=== PATIENT | male | born 1970 | race Caucasian/White ===

== ENCOUNTER 2016-09-03 11:14 | Inpatient (IN) | payer OTHER ==
[2016-09-02 20:00] VITALS: PULSE 114
[2016-09-03] VITALS (8 sets, daily range): BP systolic 111–133; BP diastolic 65–83; PULSE 102–135; RESP 14–22; TEMP 98–98.6; O2SAT 98–100
[~2016-09-03] VITALS: Ht 180.3 cm; Wt 71.4 kg
[2016-09-03] MEDS ORDERED: SODIUM CHLOR 0.9% 1000 ML INJ 1,000 ML IV SCH (12:17)
--- NOTE | 2016-09-03 12:22 | PD ---
HPI Chief Complaint: Abdominal Pain Time Seen by Provider: 12:19 Travel History International Travel<30 days: No Contact w/Intl Traveler<30days: No Traveled to known affect area: No History of Present Illness HPI 46-year-old male presents to the emergency department for evaluation of abdominal pain, vomiting that started approximate 5 days ago. Patient states that he drinks half a bottle of vodka or more daily for many years. The patient denies any fevers. He states that he has vomited twice today. He was shaking alcohol early this morning, but has not been able to keep anything down since. Patient denies any chest pain or shortness of breath. He states the pain is epigastric in nature. Patient denies any hematemesis or blood in his stool. Patient denies taking any prescribed medications. He does report 1 alcohol withdrawal seizure in the past. is concerned because he has been very weak recently. PFSH Past Medical History High Cholesterol: Yes GERD: Yes Social History Alcohol Use: Yes (ETOH ABUSE ) Tobacco Use: Yes Substance Use: No Allergies-Medications (Allergen,Severity, Reaction): Coded Allergies: No Known Allergies (Unverified , 09/03/16) Reported Meds & Prescriptions Reported Meds & Active Scripts Active No Active Prescriptions or Reported Medications Review of Systems Except as stated in HPI: all other systems reviewed are Neg Physical Exam Narrative GENERAL: Well-nourished, well-developed male patient, afebrile. SKIN: Focused skin assessment warm/dry. HEAD: Normocephalic. Atraumatic. EYES: No scleral icterus. No injection or drainage. NECK: Supple, trachea midline. No JVD or lymphadenopathy. CARDIOVASCULAR: Regular rhythm without murmurs, gallops, or rubs. Patient is tachycardic with heart rate in the 130s. RESPIRATORY: Breath sounds equal bilaterally. No accessory muscle use. Lungs sounds are clear to auscultation. GASTROINTESTINAL: Abdomen soft and nondistended. Patient has epigastric tenderness to palpation. MUSCULOSKELETAL: No cyanosis, or edema. BACK: Nontender without obvious deformity. No CVA tenderness. Data Data Last Documented VS Vital Signs Date Time Temp Pulse Resp B/P Pulse Ox O2 Delivery O2 Flow Rate FiO2 09/03/16 14:41 117 22 111/71 100 Room Air 09/03/16 12:09 98.0 Orders Complete Blood Count With Diff (09/03/16 12:17) Comprehensive Metabolic Panel (09/03/16 12:17) Lipase (09/03/16 12:17) Prothrombin Time / Inr (Pt) (09/03/16 12:17) Act Partial Throm Time (Ptt) (09/03/16 12:17) Urinalysis - C+S If Indicated (09/03/16 12:17) Ct Abd/Pel W Iv Contrast(Rout) (09/03/16 12:17) Iv Access Insert/Monitor (09/03/16 12:17) Ecg Monitoring (09/03/16 12:17) Oximetry (09/03/16 12:17) Ondansetron Inj (Zofran Inj) (09/03/16 12:30) Sodium Chlor 0.9% 1000 Ml Inj (Ns 1000 M (09/03/16 12:17) Sodium Chloride 0.9% Flush (Ns Flush) (09/03/16 12:30) Electrocardiogram (09/03/16 12:17) Sodium Chlor 0.9% 1000 Ml Inj (Ns 1000 M (09/03/16 12:30) Alcohol (Ethanol) (09/03/16 12:24) Potassium Chloride Eff (K-Lyte Cl Eff) (09/03/16 13:30) Magnesium (Mg) (09/03/16 12:24) Iohexol 350 Inj (Omnipaque 350 Inj) (09/03/16 14:20) Magnesium Oxide (Mag-Ox) (09/03/16 15:15) Labs Laboratory Tests Test 09/03/16 12:24 White Blood Count 8.6 TH/MM3 Red Blood Count 4.06 MIL/MM3 Hemoglobin 15.6 GM/DL Hematocrit 44.6 % Mean Corpuscular Volume 109.8 FL Mean Corpuscular Hemoglobin 38.4 PG Mean Corpuscular Hemoglobin 35.0 % Concent Red Cell Distribution Width 14.1 % Platelet Count 159 TH/MM3 Mean Platelet Volume 7.8 FL Neutrophils (%) (Auto) 75.2 % Lymphocytes (%) (Auto) 17.1 % Monocytes (%) (Auto) 6.6 % Eosinophils (%) (Auto) 0.1 % Basophils (%) (Auto) 1.0 % Neutrophils # (Auto) 6.4 TH/MM3 Lymphocytes # (Auto) 1.5 TH/MM3 Monocytes # (Auto) 0.6 TH/MM3 Eosinophils # (Auto) 0.0 TH/MM3 Basophils # (Auto) 0.1 TH/MM3 CBC Comment DIFF FINAL Differential Comment Prothrombin Time 13.2 SEC Prothromb Time International 1.2 RATIO Ratio Activated Partial 25.1 SEC Thromboplast Time Sodium Level 134 MEQ/L Potassium Level 2.8 MEQ/L Chloride Level 90 MEQ/L Carbon Dioxide Level 26.5 MEQ/L Anion Gap 18 MEQ/L Blood Urea Nitrogen 12 MG/DL Creatinine 0.79 MG/DL Estimat Glomerular Filtration 105 ML/MIN Rate Random Glucose 119 MG/DL Calcium Level 9.8 MG/DL Magnesium Level 1.2 MG/DL Total Bilirubin 2.3 MG/DL Aspartate Amino Transf 253 U/L (AST/SGOT) Alanine Aminotransferase 61 U/L (ALT/SGPT) Alkaline Phosphatase 143 U/L Total Protein 7.6 GM/DL Albumin 3.6 GM/DL Lipase 620 U/L Ethyl Alcohol Level 142 MG/DL [facility] Medical Decision Making Medical Screen Exam Complete: Yes Emergency Medical Condition: Yes Medical Record Reviewed: Yes Interpretation(s) Last Impressions Abdomen/Pelvis CT 09/03/16 1217 Signed Impressions: Service Date/Time: Monday, September 03, 2016 14:07 - CONCLUSION: 1. Fatty liver. 2. Chronic spondylolysis bilateral L5. K. Cj Vazquez MD Differential Diagnosis Pancreatitis versus cholecystitis versus diverticulitis versus dehydration versus electrolyte abnormality Narrative Course 46-year-old male presents to the emergency department for evaluation of abdominal pain, vomiting for 5 days. Patient is tachycardic and appears pale on exam. EKG, CBC, CMP, lipase, alcohol level, PTT, PTT/INR, UA are ordered and pending. Patient is given normal saline 1 L IV bolus 2 and Zofran [address] of the abdomen/pelvis with IV contrast is ordered and pending. EKG shows sinus tachycardia, HR 113, no acute ST changes. CBC shows no acute abnormality. CMP shows hypokalemia of 2.8, anion gap of 18, bilirubin of 2.3, AST 253. Magnesium is 1.2. Lipase is 620. Alcohol level is 142. Coags show no acute abnormality. CT of the abdomen/pelvis shows fatty liver; chronic spondylolysis bilateral L5. Patient is given K 50 meq PO and magnesium oxide 400 mg PO. Patient remains tachycardic with HR 120-130. Patient will be admitted to observation. [facility] is paged for admission. Dr. Mccann accepted admission. Diagnosis Primary Impression: Pancreatitis Qualified Code: K85.20 - Alcohol-induced acute pancreatitis without infection or necrosis Additional Impressions: Hypokalemia Hypomagnesemia Admitting Information Admitting Physician Requests: Admit Scripts No Active Prescriptions or Reported Meds Leida Juárez Sep 03, 2016 12:22
[2016-09-03] MEDS ORDERED: ONDANSETRON HCL 4 MG/2 ML VIAL IVP ONE (12:30)
[2016-09-03] MEDS ORDERED: SODIUM CHLOR 0.9% 1000 ML INJ 1,000 ML IV ONE (12:30)
[2016-09-03 12:34] LABS: AUTOMATED NEUTROPHIL # 6.4 TH/MM3 (1.8-7.7); BASOPHIL # 0.1 TH/MM3 (0-0.2); EOSINOPHIL % 0.1 % (0.0-4.0); HEMATOCRIT 44.6 % (39.0-51.0); HEMO FLAGS DIFF FINAL; LYMPH % 17.1 % (9.0-44.0); LYMPHOCYTE # 1.5 TH/MM3 (1.0-4.8); MEAN CELL VOLUME 109.8 FL (80.0-100.0); MEAN CORPUSCULAR HEMOGLOBIN 38.4 PG (27.0-34.0); MONO % 6.6 % (0.0-8.0); NEUT % 75.2 % (16.0-70.0); PLATELET COUNT 159 TH/MM3 (150-450); RED BLOOD COUNT 4.06 MIL/MM3 (4.50-5.90); RED CELL DISTRIBUTION WIDTH 14.1 % (11.6-17.2); WHITE BLOOD COUNT 8.6 TH/MM3 (4.0-11.0)
[2016-09-03 12:42] LABS: APTT (PATIENT) 25.1 SEC (24.3-30.1); INTERNATIONAL NORMALIZED RATIO 1.2 RATIO; PROTHROMBIN TIME - PATIENT 13.2 SEC (9.8-11.6)
[2016-09-03 13:03] LABS: ANION GAP 18 MEQ/L (5-15)
[2016-09-03 13:10] LABS: ALKALINE PHOSPHATASE 143 U/L (45-117); ALT (GPT) 61 U/L (12-78); AST (GOT) 253 U/L (15-37); BICARBONATE 26.5 MEQ/L (21.0-32.0); BLOOD UREA NITROGEN 12 MG/DL (7-18); CHLORIDE 90 MEQ/L (98-107); GLOMERULAR FILTRATION RATE 105 ML/MIN (>89); SODIUM (NA) 134 MEQ/L (136-145); TOTAL BILIRUBIN ADULT 2.3 MG/DL (0.2-1.0)
[2016-09-03 13:15] LABS: POTASSIUM 2.8 MEQ/L (3.5-5.1)
[2016-09-03] MEDS ORDERED: POTASSIUM CHLORIDE 25 MEQ EFFERVESCENT TAB PO ONE (13:30)
[2016-09-03 13:36] LABS: MAGNESIUM 1.2 MG/DL (1.5-2.5)
[2016-09-03] MEDS ORDERED: IOHEXOL 350 MG/ML 10 ML VIAL (for RAD DIAG) IV ONE (14:20)
--- NOTE | 2016-09-03 14:57 | RADRPT ---
EXAM DATE/TIME: 09/03/2016 14:07 [facility] COMPARISON: No previous studies available for comparison. INDICATIONS : Upper abdomen pain for 5 days IV CONTRAST: 86 cc Omnipaque 350 (iohexol) IV ORAL CONTRAST: No oral contrast ingested. RADIATION DOSE: 4.96 CTDIvol (mGy) MEDICAL HISTORY : ETOH abuse SURGICAL HISTORY : None. ENCOUNTER: Initial ACUITY: 4 - 6 days PAIN SCALE: 4/10 LOCATION: upper quadrant TECHNIQUE: Volumetric scanning of the abdomen and pelvis was performed. Using automated exposure control and adjustment of the mA and/or kV according to patient size, radiation dose was kept as low as reasonably achievable to obtain optimal diagnostic quality images. DICOM format image data is av ailable electronically for review and comparison. FINDINGS: CT Abdomen: The spleen, pancreas, kidneys, adrenals are unremarkable. There is no evidence for any ap preciable pathological adenopathy, free fluid, or bowel obstruction. There is old fracture of right L1 transverse process. The liver is fatty without focal lesions or technique. CT pelvis: There is no evidence for mass, abscess formation, or any significant adenopathy within the pelvis. The prostate gland is inhomogeneous and measures 2.7 x 3.3 cm in AP and transverse diameters and nonspecific. There is bilateral chronic spondylolysis L5. CONCLUSION: 1. Fatty liver. 2. Chronic spondylolysis bilateral L5. K. Cj Vazquez MD on September 03, 2016 at 14:52 Board Certified Radiologist. This report was verified electronically.
[2016-09-03] MEDS ORDERED: MAGNESIUM OXIDE 400 MG TAB PO ONE (15:15)
[2016-09-03] MEDS ORDERED: BISACODYL 10 MG SUPP RECTAL PRN (15:30)
[2016-09-03] MEDS ORDERED: SENNOSIDES 8.6 MG TAB PO PRN (15:30)
[2016-09-03] MEDS ORDERED: LACTULOSE SYRUP 20 GM/30 ML CUP PO PRN (15:30)
[2016-09-03] MEDS ORDERED: MAGNESIUM HYDROXIDE SUSP 30 ML CUP PO PRN (15:30)
[2016-09-03] MEDS ORDERED: ONDANSETRON HCL 4 MG/2 ML VIAL IVP PRN (15:30)
[2016-09-03] MEDS ORDERED: FLUMAZENIL 0.5 MG/5 ML VIAL IV PUSH PRN (15:30)
[2016-09-03] MEDS ORDERED: LORazepam 2 MG/ML VIAL IV PUSH PRN (15:30)
[2016-09-03] MEDS ORDERED: NALOXONE HCL 0.4 MG/ML AMP IV PRN (15:30)
[2016-09-03] MEDS ORDERED: LORazepam 2 MG TAB PO PRN (15:30)
[2016-09-03 16:45] LABS: BLOOD, URINE NEG (NEG); COMMENT (UR) CULT NOT INDICATED; CULTURE IF INDICATED CULT NOT INDICATED; GLUCOSE,URINE NEG (NEG); KETONE, URINE 40 mg/dL (NEG); MUCUS URINE MOD /lpf (OCC); NITRITE,URINE NEG (NEG); PH, URINE 6.5 (5.0-8.5)
[2016-09-03] MEDS: LORazepam 1 MG TAB PO PRN ×2 (16:52→20:44)
[2016-09-03 16:53] LABS: URINE COLOR LIGHT-BROWN (YELLW/STRAW)
[2016-09-03] MEDS: NS + KCL 20 MEQ INJ 1,000 ML IV SCH (16:53)
[2016-09-03] MEDS: THIAMINE INJ 100 MG in SODIUM CHLORIDE 0.9% INJ 100 ML IV SCH (17:00)
--- NOTE | 2016-09-03 18:15 | HHI.HP ---
[facility] Admission Diagnosis pancreatitis, hypokalemia, hypomagnesemia, tachycardia Diagnoses: (1) Pancreatitis (2) Hypomagnesemia (3) Hypokalemia (4) Hyperlipidemia (5) GERD (gastroesophageal reflux disease) (6) Alcohol withdrawal Chief Complaint: Nausea, vomiting; "I want to stop drinking" Travel History International Travel<30 Days: No Contact w/Intl Traveler <30 Da: No Traveled to Known Affected Are: No History of Present Illness The patient is a 46-year-old male who presented to the emergency department with complaint of abdominal pain, nausea, vomiting. This started a few days ago , and he has not really been able to keep much down today. He reports that he is a "serious alcoholic". He wants to stop drinking. His last drink was at 2:30 this morning. He states that he drinks a half gallon of vodka daily. The patient 's abdominal pain is located just below the sternum. He feels very weak. He denies vomiting any blood. He has had an alcohol withdrawal seizure, 10 years ago. He states that about 4 days ago he developed double vision, and it has not improved. He still states that he has fallen multiple times recently. He has hit his head on many of those occasions. He did not fall today. Review of Systems Constitutional: DENIES: Fever, Chills, Night Sweats Eyes: COMPLAINS OF: Diplopia, DENIES: Vision loss Ears, nose, mouth, throat: DENIES: Hearing loss Respiratory: DENIES: Cough, Wheezing, Sputum production, Shortness of breath Cardiovascular: DENIES: Chest pain, Palpitations, Dyspnea on Exertion, Lower Extremity Edema Gastrointestinal: COMPLAINS OF: Nausea, Vomiting, DENIES: Abdominal pain, Constipation, Diarrhea Genitourinary: DENIES: Urinary frequency, Urinary incontinence, Urgency, Hematuria, Dysuria, Nocturia Musculoskeletal: DENIES: Joint pain, Muscle aches Integumentary: DENIES: Pruritus, Rash Hematologic/lymphatic: DENIES: Bruising Neurologic: COMPLAINS OF: Tremor, DENIES: Headache Past Family Social History Past Medical History GERD Hyperlipidemia Alcohol abuse Past Surgical History Denies Reported Medications None Allergies: Coded Allergies: No Known Allergies (Unverified , 09/03/16) Family History Hypertension Breast cancer Social History Patient uses smokeless tobacco. He drinks a half gallon of vodka daily. Denies illicit drug use. Physical Exam Vital Signs Vital Signs Date Time Temp Pulse Resp B/P Pulse Ox O2 Delivery O2 Flow Rate FiO2 09/03/16 16:46 126 14 119/79 99 Room Air 09/03/16 14:41 117 22 111/71 100 Room Air 09/03/16 14:41 20 100 Room Air 09/03/16 12:09 98.0 135 21 133/65 98 Physical Exam GENERAL: Disheveled male in no acute distress. HEENT: Normocephalic, atraumatic. Pupils equal, round and reactive. Eyes do not track equally. No scleral icterus. No injection or drainage. Oropharynx is clear. Mucous membranes are moist. CARDIOVASCULAR: Regular rate and rhythm without murmurs, gallops, or rubs. RESPIRATORY: Clear to auscultation. No wheezes, rales, or rhonchi. Breathing is non-labored. GASTROINTESTINAL: Abdomen soft, non-tender, nondistended. EXTREMITIES: No lower extremity edema. No calf tenderness. PSYCH: Alert and oriented x 3. Laboratory Laboratory Tests Test 09/03/16 09/03/16 12:24 15:30 White Blood Count 8.6 Red Blood Count 4.06 Hemoglobin 15.6 Hematocrit 44.6 Mean Corpuscular Volume 109.8 Mean Corpuscular Hemoglobin 38.4 Mean Corpuscular Hemoglobin 35.0 Concent Red Cell Distribution Width 14.1 Platelet Count 159 Mean Platelet Volume 7.8 Neutrophils (%) (Auto) 75.2 Lymphocytes (%) (Auto) 17.1 Monocytes (%) (Auto) 6.6 Eosinophils (%) (Auto) 0.1 Basophils (%) (Auto) 1.0 Neutrophils # (Auto) 6.4 Lymphocytes # (Auto) 1.5 Monocytes # (Auto) 0.6 Eosinophils # (Auto) 0.0 Basophils # (Auto) 0.1 CBC Comment DIFF FINAL Differential Comment Prothrombin Time 13.2 Prothromb Time International 1.2 Ratio Activated Partial 25.1 Thromboplast Time Sodium Level 134 Potassium Level 2.8 Chloride Level 90 Carbon Dioxide Level 26.5 Anion Gap 18 Blood Urea Nitrogen 12 Creatinine 0.79 Estimat Glomerular Filtration 105 Rate Random Glucose 119 Calcium Level 9.8 Magnesium Level 1.2 Total Bilirubin 2.3 Aspartate Amino Transf 253 (AST/SGOT) Alanine Aminotransferase 61 (ALT/SGPT) Alkaline Phosphatase 143 Total Protein 7.6 Albumin 3.6 Lipase 620 Ethyl Alcohol Level 142 Urine Color LIGHT-BROWN Urine Turbidity CLEAR Urine pH 6.5 Urine Specific [place] GREATER THAN 1.050 Urine Protein 100 Urine Glucose (UA) NEG Urine Ketones 40 Urine Occult Blood NEG Urine Nitrite NEG Urine Bilirubin SMALL Urine Urobilinogen 2.0 Urine Leukocyte Esterase NEG Urine WBC LESS THAN 1 Urine Mucus MOD Microscopic Urinalysis Comment CULT NOT INDICATED Result Diagram: 09/03/16 1224 09/03/16 1224 Imaging Last Impressions Abdomen/Pelvis CT 09/03/16 1217 Signed Impressions: Service Date/Time: Monday, September 03, 2016 14:07 - CONCLUSION: 1. Fatty liver. 2. Chronic spondylolysis bilateral L5. K. Cj Vazquez MD Assessment and Plan Assessment and Plan 1. Alcohol withdrawal: Continue CIWA protocol. Seizure, alcohol withdrawal precautions. Monitor overnight in intensive care. Multivitamin, thiamine, folic acid. 2. Hypokalemia: Supplement potassium. Follow labs. 3. Hypomagnesemia: Supplement magnesium. 4. Diplopia: Patient has had multiple recent falls and has reportedly hit his head. We'll check head CT. 5. DVT prophylaxis: SCDs, PORSHA smith. Problem Qualifiers (1) Pancreatitis: Qualified Code: K85.20 - Alcohol-induced acute pancreatitis without infection or necrosis Rhys Mccann MD Sep 03, 2016 18:15
--- NOTE | 2016-09-03 18:51 | RADRPT ---
EXAM DATE/TIME: 09/03/2016 18:31 [facility] COMPARISON: No previous studies available for comparison. INDICATIONS : Weakness X 5 days. RADIATION DOSE: 33.32 CTDIvol (mGy) MEDICAL HISTORY : ETOH abuse SURGICAL HISTORY : None. ENCOUNTER: Initial ACUITY: 1 week PAIN SCALE: 5/10 LOCATION: cranial TECHNIQUE: Multiple contiguous axial images were obtained of the head. Using automated exposure control and adj ustment of the mA and/or kV according to patient size, radiation dose was kept as low as reasonably a chievable to obtain optimal diagnostic quality images. DICOM format image data is available electro nically for review and comparison. FINDINGS: There is no evidence for intracranial hemorrhage, mass effect, mass lesions, edema, or extra-axial fl uid collections. The visualized bony structures appear intact. The ventricles are normal size for t he patient's age. There are no signs of acute infarction for technique. CONCLUSION: Unremarkable study. Crystal Vazquez MD on September 03, 2016 at 18:49 Board Certified Radiologist. This report was verified electronically.
[2016-09-03] MEDS ORDERED: CHLORHEXIDINE GLUCONATE 2 % 1 PACK (2 CLOTHS)(extra cloths) TOPICAL PRN (20:30)
[2016-09-03] MEDS: DOCUSATE SODIUM 50 MG/SENNA 8.6 MG TAB PO SCH (20:45)
[2016-09-03] MEDS: MULTIVITAMIN INJ 10 ML, FOLIC ACID INJ 1 MG in SODIUM CHLORID 0.9% 500 ML INJ 500 ML IV SCH (20:45)
[2016-09-03 21:44] LABS: BICARBONATE 29.5 MEQ/L (21.0-32.0); POTASSIUM 3.3 MEQ/L (3.5-5.1)
[2016-09-03] MEDS: REMOVE OLD PATCH T-DERMAL SCH (23:45)
[2016-09-03] MEDS: NICOTINE 21 MG/24 HR PATCH T-DERMAL SCH (23:50)
[2016-09-04] VITALS (12 sets, daily range): BP systolic 108–137; BP diastolic 72–84; PULSE 82–102; RESP 17–20; TEMP 98.5–98.8; O2SAT 96–100
[2016-09-04] MEDS: LORazepam 1 MG TAB PO PRN (01:29)
[2016-09-04] MEDS: LORazepam 2 MG/ML VIAL IV PUSH PRN ×6 (03:45→16:36)
[2016-09-04] MEDS: NS + KCL 20 MEQ INJ 1,000 ML IV SCH ×3 (03:47→13:18)
[2016-09-04] MEDS: CHLORHEXIDINE GLUCONATE 2 % 1 PACK (2 CLOTHS)(taper/protocol) TOPICAL SCH (03:48)
[2016-09-04 05:31] LABS: ALT (GPT) 44 U/L (12-78); ANION GAP 8 MEQ/L (5-15); AST (GOT) 157 U/L (15-37); BICARBONATE 29.2 MEQ/L (21.0-32.0); BLOOD UREA NITROGEN 9 MG/DL (7-18); CHLORIDE 99 MEQ/L (98-107); GLOMERULAR FILTRATION RATE 134 ML/MIN (>89); MAGNESIUM 1.2 MG/DL (1.5-2.5); POTASSIUM 3.1 MEQ/L (3.5-5.1); SODIUM (NA) 136 MEQ/L (136-145)
[2016-09-04 05:34] LABS: ALKALINE PHOSPHATASE 105 U/L (45-117); TOTAL BILIRUBIN ADULT 2.3 MG/DL (0.2-1.0)
--- NOTE | 2016-09-04 07:52 | HHI.PR ---
Subjective Remarks Follow up alcohol withdrawal. Patient has developed hallucinations. He is more tremulous. Has required increasing doses of Ativan. Now in 4 point soft restraints. Objective Vitals Vital Signs Date Time Temp Pulse Resp B/P Pulse Ox O2 Delivery O2 Flow Rate FiO2 09/04/16 06:00 93 09/04/16 04:00 98.7 102 19 136/83 98 09/04/16 04:00 102 09/04/16 02:00 98 09/04/16 00:00 98.7 95 20 137/84 99 09/04/16 00:00 95 09/03/16 22:00 102 09/03/16 20:01 98.6 103 18 133/83 100 09/03/16 19:45 115 16 123/75 100 Room Air 09/03/16 19:29 110 22 126/76 100 09/03/16 16:46 127 19 119/79 09/03/16 16:46 126 14 119/79 99 Room Air 09/03/16 14:41 117 22 111/71 100 Room Air 09/03/16 14:41 20 100 Room Air 09/03/16 14:00 129 16 111/71 99 Room Air 09/03/16 12:09 98.0 135 21 133/65 98 I/O 09/03/16 09/03/16 09/03/16 09/04/16 09/04/16 09/04/16 06:59 14:59 22:59 06:59 14:59 22:59 Intake Total 3603 ml 778 ml Output Total 150 ml Balance 3453 ml 778 ml Intake Oral 1080 ml IV Total 2523 ml 778 ml Output Urine Total 150 ml Result Diagram: 09/03/16 1224 09/04/16 0427 Imaging Last Impressions Abdomen/Pelvis CT 09/03/16 1217 Signed Impressions: Service Date/Time: Saturday, September 03, 2016 14:07 - CONCLUSION: 1. Fatty liver. 2. Chronic spondylolysis bilateral L5. Crystal Vazquez MD Head CT 09/03/16 0000 Signed Impressions: Service Date/Time: Saturday, September 03, 2016 18:31 - CONCLUSION: Unremarkable study. Crystal Vazquez MD Objective Remarks General: Agitated. In soft wrist and ankle restraints. Tremulous. Heart: Tachycardic. 2/6 murmur. Lungs: Clear to auscultation bilaterally. No wheezes, rales, or rhonchi. Breathing is nonlabored. Abdomen: Soft, nontender, nondistended. Extremities: No lower extremity edema. Psych: Alert, confused. Procedures None Urinary Catheter: No Vascular Central Line Catheter: No A/P Problem List: (1) Pancreatitis ICD Code: K85.90 Status: Acute (2) Hypomagnesemia ICD Code: E83.42 Status: Acute (3) Hypokalemia ICD Code: E87.6 Status: Acute (4) Hyperlipidemia ICD Code: E78.5 Status: Acute (5) GERD (gastroesophageal reflux disease) ICD Code: K21.9 Status: Acute (6) Alcohol withdrawal ICD Code: F10.239 Status: Acute Assessment and Plan 1. Alcohol withdrawal: Continue CIWA protocol. Seizure, alcohol withdrawal precautions. Multivitamin, thiamine, folic acid. Requiring increased doses of Ativan this morning. Has developed hallucinations. Add scheduled Librium. May require Precedex drip. 2. Hypokalemia: Supplement potassium IV. Recheck labs in the morning. 3. Hypomagnesemia: Supplement magnesium IV. Recheck labs in the morning. 4. Diplopia: Patient has had multiple recent falls and has reportedly hit his head. Head CT is negative. 5. DVT prophylaxis: Valerie, PORSHA smith. Discussed with Dr. Parra, critical care, who will be available as needed if patient continues to worsen clinically. Problem Qualifiers (1) Pancreatitis: Qualified Code: K85.20 - Alcohol-induced acute pancreatitis without infection or necrosis Rhys Mccann MD Sep 04, 2016 07:51
[2016-09-04] MEDS: REMOVE OLD PATCH T-DERMAL SCH (09:00)
[2016-09-04] MEDS: chlordiazePOXIDE 25 MG CAP PO SCH ×3 (09:13→20:37)
[2016-09-04] MEDS: POTASSIUM CHLOR 20 MEQ PREMIX 100 ML IV SCH ×2 (09:13→09:26)
[2016-09-04] MEDS: DOCUSATE SODIUM 50 MG/SENNA 8.6 MG TAB PO SCH ×2 (09:13→20:36)
[2016-09-04] MEDS: NICOTINE 21 MG/24 HR PATCH T-DERMAL SCH (09:13)
[2016-09-04] MEDS: MAGNESIUM SULFATE 1 GM PREMIX 100 ML IV SCH ×2 (09:13→09:26)
[2016-09-04] MEDS: PANTOPRAZOLE SOD 40 MG DELAYED RELEASE TAB PO SCH (09:13)
--- NOTE | 2016-09-04 12:43 | PD.PSY.CON ---
Provisional Diagnosis Admission Date Sep 03, 2016 at 15:29 [place] I. 1. Alcohol dependence 2. Rule out underlying mixed anxiety/depressive disorder or PTSD [place] II. Deferred History of Present Illness Service Psychiatry Consult Requested By Dr. Mccann Reason for Consult Alcohol abuse;? PTSD Primary Care Physician [facility] Mr. Freeman is a 46-year-old male with a history of alcohol use issues who is presently admitted to the [facility] and alcohol withdrawal. It appears that he slipped into alcohol withdrawal delirium within the last day or so. Reviewing the electronic medical record, I see no prior psychiatric contact within our system. Patient seen and examined. Chart reviewed. Case discussed with nursing staff. Patient just received a dose of Ativan per nurse but prior to this had been A& O 1 and hallucinating. Nurse has spoken with the patient's who apparently feels that the patient is quite anxious at home and may have some PTSD related to his history of service in the [employer]. On my examination today, the patient is more lucid than reported by the nurse, likely due to the Ativan he just received. Examination is still somewhat limited because of his ongoing delirium. He initially, for example, [place] the [place] He says he came into the hospital because he had to stop drinking. He says that he has been feeling somewhat depressed since he moved down from [place] about 8 months ago. He misses his family. He does endorse some feelings of hopelessness. Denies any audiovisual hallucinations but does complain of some double vision. Denies any suicidal or homicidal ideation. Admits to feeling somewhat anxious; says it "comes and goes." He says that his "gets me fired up" and the relationship is apparently somewhat fractious. 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 Remainder of the psychiatric ROS is negative. Past psychiatric history: Possible history of depression. Not currently under the care of a psychiatrist. Denies a history of psychiatric admissions or suicide attempts. Family history: Patient denies any family history of mental illness. Chemical dependency history: Patient says that he splits a bottle of vodka with his . He has a history of DTs and says that he had a withdrawal seizure 10 years ago. He does admit that his alcohol use has caused relationship problems in the past. Denies any other substance use. Social history: Patient is originally from [place]. He is with no children. He previously served in the [employer]. Not presently working. Says that he does keep some firearms at home but isn't sure where they're at. No reported history of a suicide plan involving a firearm. Review of Systems ROS Limitations: Poor Historian Except as stated in HPI: all other systems reviewed are Neg Past Family Social History Coded Allergies: No Known Allergies (Unverified , 09/03/16) Past Medical History See electronic medical record No Active Prescriptions or Reported Meds Current Medications Medications (Trade) Dose Ordered Sig/Guille Route Start Time Stop Time Status Last Admin (NS Flush) 2 ml UNSCH PRN IV FLUSH 09/03/16 12:30 (Zofran Inj) 4 mg Q6H PRN IVP 09/03/16 15:30 (Narcan Inj) 0.4 mg UNSCH PRN IV 09/03/16 15:30 (Farzana-Colace) 1 tab BID PO 09/03/16 21:00 09/04/16 09:13 (Milk Of Magnesia Liq) 30 ml Q12H PRN PO 09/03/16 15:30 (Senokot) 17.2 mg Q12H PRN PO 09/03/16 15:30 (Dulcolax Supp) 10 mg DAILY PRN RECTAL 09/03/16 15:30 (Lactulose Liq) 30 ml DAILY PRN PO 09/03/16 15:30 (Romazicon Inj) 0.2 mg Q1M PRN IV PUSH 09/03/16 15:30 (Ativan) 1 mg Q4H PRN PO 09/03/16 15:30 09/04/16 01:29 (Ativan Inj) 1 mg Q4H PRN IV PUSH 09/03/16 15:30 (Ativan) 2 mg Q2H PRN PO 09/03/16 15:30 (Ativan Inj) 2 mg Q2H PRN IV PUSH 09/03/16 15:30 09/04/16 12:21 (Ativan Inj) 2 mg Q1H PRN IV PUSH 09/03/16 15:30 Lorazepam 2 mg 2 mg Q15M PRN IV PUSH 09/03/16 15:30 09/04/16 06:45 Potassium Chloride/Sodium Chloride 1,000 ml @ 100 mls/hr Q10H IV 09/03/16 16:00 09/04/16 11:30 Multivitamins 10 ml/Folic Acid 1 mg/Sodium Chloride 510.2 ml @ 125 mls/hr Q24H IV 09/03/16 17:00 09/08/16 16:59 09/03/16 20:45 (Thiamine Inj/NS Inj) 101 ml @ 100 mls/hr Q24H IV 09/03/16 17:00 09/06/16 16:59 09/03/16 17:00 (Vitamin B1) 100 mg DAILY PO 09/06/16 09:00 (Protonix) 40 mg DAILY PO 09/04/16 09:00 09/04/16 09:13 Miscellaneous Information Patient in critical care unit? Ass... Q361D .XX 09/03/16 20:30 09/03/16 20:30 (Chlorhexidine 2% Cloth) 3 pack DAILY@04 TOPICAL 09/04/16 04:00 09/08/16 04:01 09/04/16 03:48 (Chlorhexidine 2% Cloth) 3 pack UNSCH PRN TOPICAL 09/03/16 20:30 09/08/16 20:25 (Habitrol 21 Mg Patch.24 Hr) 1 patch DAILY T-DERMAL 09/03/16 23:45 09/04/16 09:13 Miscellaneous Information 1 DAILY T-DERMAL 09/03/16 23:45 09/04/16 09:00 (Librium) 50 mg Q6H PO 09/04/16 08:00 09/04/16 09:13 Patient's Strengths (min. 2) In a monitored setting. Verbally fluent. Physical Exam Physical exam completed by primary team. On my examination today, the patient appears to be somewhat ill appearing. He is in soft wrist restraints. Mild resting hand tremor. Somewhat diaphoretic. No other stigmata of alcohol withdrawal. No other abnormal motor movements noted. Labs and vitals reviewed: Vital Signs Vital Signs Date Time Temp Pulse Resp B/P Pulse Ox O2 Delivery O2 Flow Rate FiO2 09/04/16 12:00 98.5 96 18 115/83 96 09/03/16 19:45 Room Air I/O 09/03/16 09/03/16 09/04/16 08:00 16:00 00:00 Intake Total 3603 ml Output Total 150 ml Balance 3453 ml Lab Results Laboratory Tests Test 09/03/16 09/03/16 09/03/16 09/04/16 12:24 15:30 20:30 04:27 White Blood Count 8.6 TH/MM3 Red Blood Count 4.06 MIL/MM3 Hemoglobin 15.6 GM/DL Hematocrit 44.6 % Mean Corpuscular Volume 109.8 FL Mean Corpuscular Hemoglobin 38.4 PG Mean Corpuscular Hemoglobin 35.0 % Concent Red Cell Distribution Width 14.1 % Platelet Count 159 TH/MM3 Mean Platelet Volume 7.8 FL Neutrophils (%) (Auto) 75.2 % Lymphocytes (%) (Auto) 17.1 % Monocytes (%) (Auto) 6.6 % Eosinophils (%) (Auto) 0.1 % Basophils (%) (Auto) 1.0 % Neutrophils # (Auto) 6.4 TH/MM3 Lymphocytes # (Auto) 1.5 TH/MM3 Monocytes # (Auto) 0.6 TH/MM3 Eosinophils # (Auto) 0.0 TH/MM3 Basophils # (Auto) 0.1 TH/MM3 CBC Comment DIFF FINAL Differential Comment Prothrombin Time 13.2 SEC Prothromb Time International 1.2 RATIO Ratio Activated Partial 25.1 SEC Thromboplast Time Ethyl Alcohol Level 142 MG/DL Urine Color LIGHT-BROWN Urine Turbidity CLEAR Urine pH 6.5 Urine Specific [place] GREATER THAN 1.050 Urine Protein 100 mg/dL Urine Glucose (UA) NEG mg/dL Urine Ketones 40 mg/dL Urine Occult Blood NEG Urine Nitrite NEG Urine Bilirubin SMALL Urine Urobilinogen 2.0 MG/DL Urine Leukocyte Esterase NEG Urine WBC LESS THAN 1 /hpf Urine Mucus MOD /lpf Microscopic Urinalysis Comment CULT NOT INDICATED Nasal Screen MRSA (PCR) MRSA NOT DETECTED Sodium Level 136 MEQ/L Potassium Level 3.1 MEQ/L Chloride Level 99 MEQ/L Carbon Dioxide Level 29.2 MEQ/L Anion Gap 8 MEQ/L Blood Urea Nitrogen 9 MG/DL Creatinine 0.64 MG/DL Estimat Glomerular Filtration 134 ML/MIN Rate Random Glucose 82 MG/DL Calcium Level 8.1 MG/DL Magnesium Level 1.2 MG/DL Total Bilirubin 2.3 MG/DL Aspartate Amino Transf 157 U/L (AST/SGOT) Alanine Aminotransferase 44 U/L (ALT/SGPT) Alkaline Phosphatase 105 U/L Total Protein 6.1 GM/DL Albumin 3.1 GM/DL Lipase 1037 U/L Alcohol level 142. Mental Status Examination Patient is in hospital gown. He is somewhat disheveled. He is oriented to person, August in 2016 in [place]. Motor exam as above. Speech within normal limits for rate, tone and volume. Language and fund of knowledge average. Focus and concentration impaired. Mood somewhat depressed and affect blunted. Thought process somewhat scattered. No delusions. Denies hallucinations. Denies suicidal or homicidal ideation, intent or plan. Insight and judgment are presently limited because of the delirium. Assessment & Plan Problem List: (1) Alcohol dependence ICD Code: F10.20 Assessment & Plan This is a 46-year-old male with psychiatric history as detailed above who is presently admitted to the [facility] for the management of alcohol withdrawal, now with delirium. Psychiatry is consulted because of the alcohol use history and also because of possible PTSD. I do suspect that the patient meets criteria for alcohol dependence, currently in withdrawal with delirium. Management of alcohol withdrawal as per the primary team. Recommend chemical dependency follow-up after acute detoxification, and in descending order preference this would be residential rehabilitation, partial hospitalization, intensive outpatient program, or lastly ambulatory chemical dependency treatment /12-step. 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 Given his acute delirium, it is most prudent to reevaluate these symptoms once he is clearer prior to initiating medications. I will ask the weekday C/L psychiatrist to return for this purpose. No indication for Mcca[place]y act at this time or inpatient psychiatric hospitalization, but we should continue to monitor as delirium clears. Case d/w RN. Thank you for the consultation. Page [phone] with questions through the weekend. Dr. Doyle to resume seeing consults tomorrow, Monday. Problem Qualifiers (1) Alcohol dependence: Qualified Code: F10.231 - Alcohol dependence with withdrawal delirium Jay Díaz MD Sep 04, 2016 12:43
--- NOTE | 2016-09-04 13:05 | EKG ---
Date Performed: 09/03/2016 Time Performed: 12:43:47 PTAGE: 46 years EKG: SINUS TACHYCARDIA, but heavy baseline artifact precludes definitive diagnosis POSSIBLE RIGH T VENTRICULAR CONDUCTION DELAY MODERATE T-WAVE ABNORMALITY, CONSIDER INFERIOR ISCHEMIA Recommend repe at EKG ABNORMAL ECG NO PREVIOUS TRACING DOCTOR: Tank Jung Interpretating Date/Time 09/04/2016 13:04:55
--- NOTE | 2016-09-04 13:07 | EKG ---
Date Performed: 09/03/2016 Time Performed: 14:27:57 PTAGE: 46 years EKG: SINUS TACHYCARDIA POSSIBLE RIGHT VENTRICULAR CONDUCTION DELAY NONSPECIFIC T-WAVE ABNORMALIT Y Compared to previous tracing, previously seen ST changes are slightly more prominent. Baseline alf fact has improved ABNORMAL RHYTHM ECG PREVIOUS TRACING : 09/03/2016 12.43 DOCTOR: Tank Jung Interpretating Date/Time 09/04/2016 13:05:39
[2016-09-04] MEDS: MULTIVITAMIN INJ 10 ML, FOLIC ACID INJ 1 MG in SODIUM CHLORID 0.9% 500 ML INJ 500 ML IV SCH (16:04)
[2016-09-04] MEDS: THIAMINE INJ 100 MG in SODIUM CHLORIDE 0.9% INJ 100 ML IV SCH (16:04)
[2016-09-05] VITALS (13 sets, daily range): BP systolic 106–115; BP diastolic 58–89; PULSE 90–122; RESP 16–25; TEMP 98.4–98.7; O2SAT 97–100
[2016-09-05] MEDS: LORazepam 2 MG/ML VIAL IV PUSH PRN ×2 (00:41→13:23)
[2016-09-05] MEDS: chlordiazePOXIDE 25 MG CAP PO SCH ×4 (01:47→19:09)
[2016-09-05] MEDS: CHLORHEXIDINE GLUCONATE 2 % 1 PACK (2 CLOTHS)(taper/protocol) TOPICAL SCH (04:00)
[2016-09-05] MEDS: NICOTINE 21 MG/24 HR PATCH T-DERMAL SCH (08:19)
[2016-09-05] MEDS: PANTOPRAZOLE SOD 40 MG DELAYED RELEASE TAB PO SCH (08:19)
[2016-09-05] MEDS: DOCUSATE SODIUM 50 MG/SENNA 8.6 MG TAB PO SCH ×2 (08:19→19:08)
[2016-09-05] MEDS: NS + KCL 20 MEQ INJ 1,000 ML IV SCH ×2 (08:20→19:08)
[2016-09-05] MEDS: REMOVE OLD PATCH T-DERMAL SCH (09:00)
--- NOTE | 2016-09-05 09:22 | HHI.PR ---
Subjective Remarks Follow-up alcohol withdrawal. Patient states that he is feeling better. Still complaining of diplopia, which has been going on for at least 5 days. Symptoms started well before withdrawal symptoms. Denies chest pain. Reports occasional dyspnea. Objective Vitals Vital Signs Date Time Temp Pulse Resp B/P Pulse Ox O2 Delivery O2 Flow Rate FiO2 09/05/16 08:00 97 09/05/16 06:00 93 09/05/16 04:00 105 09/05/16 04:00 98.5 105 25 115/89 09/05/16 02:00 90 09/05/16 00:00 98.7 94 18 115/84 100 09/05/16 00:00 94 09/04/16 22:00 95 09/04/16 20:00 98.5 85 17 108/72 100 09/04/16 20:00 85 09/04/16 18:00 87 09/04/16 16:00 98.7 89 20 125/84 96 09/04/16 16:00 92 09/04/16 14:00 82 09/04/16 12:00 98.5 96 18 115/83 96 09/04/16 12:00 102 09/04/16 10:00 89 I/O 09/04/16 09/04/16 09/04/16 09/05/16 09/05/16 09/05/16 07:00 15:00 23:00 07:00 15:00 23:00 Intake Total 1899 ml 1265 ml 1355 ml Output Total 300 ml 975 ml 1075 ml Balance 1599 ml 290 ml 280 ml Intake Oral 240 ml 480 ml IV Total 1659 ml 1265 ml 875 ml Output Urine Total 300 ml 975 ml 1075 ml Result Diagram: 09/03/16 1224 09/04/16 0427 Imaging Last Impressions Abdomen/Pelvis CT 09/03/16 1217 Signed Impressions: Service Date/Time: Saturday, September 03, 2016 14:07 - CONCLUSION: 1. Fatty liver. 2. Chronic spondylolysis bilateral L5. Crystal Vazquez MD Head CT 09/03/16 0000 Signed Impressions: Service Date/Time: Saturday, September 03, 2016 18:31 - CONCLUSION: Unremarkable study. Crystal Vazquez MD Objective Remarks General: In soft wrist and ankle restraints. Tremulous. Less agitated than yesterday. Heart: Tachycardic. 2/6 murmur. Lungs: Clear to auscultation bilaterally. No wheezes, rales, or rhonchi. Breathing is nonlabored. Abdomen: Soft, nontender, nondistended. Extremities: No lower extremity edema. Psych: Alert, much more oriented than yesterday. Procedures None Urinary Catheter: No Vascular Central Line Catheter: No A/P Problem List: (1) Pancreatitis ICD Code: K85.90 Status: Acute (2) Hypomagnesemia ICD Code: E83.42 Status: Acute (3) Hypokalemia ICD Code: E87.6 Status: Acute (4) Hyperlipidemia ICD Code: E78.5 Status: Acute (5) GERD (gastroesophageal reflux disease) ICD Code: K21.9 Status: Acute (6) Alcohol withdrawal ICD Code: F10.239 Status: Acute (7) Alcohol dependence ICD Code: F10.20 Status: Acute (8) Alcohol abuse ICD Code: F10.10 Status: Acute (9) Diplopia ICD Code: H53.2 Status: Acute (10) Heart murmur ICD Code: R01.1 Status: Acute Assessment and Plan 1. Alcohol withdrawal: Continue CIWA protocol. Seizure, alcohol withdrawal precautions. Multivitamin, thiamine, folic acid. Has developed hallucinations. Continue scheduled Librium. Continue soft restraints. He has shown some improvement compared to yesterday. 2. Hypokalemia: Supplement potassium IV. Recheck labs in the morning. 3. Hypomagnesemia: Supplement magnesium IV. Recheck labs in the morning. 4. Diplopia: Patient has had multiple recent falls and has reportedly hit his head. Head CT is negative. Consult ophthalmology. 5. DVT prophylaxis: SCDs, PORSHA smith. 6. Heart murmur: Patient was unaware of a murmur and has never had an echocardiogram. Check 2D echo. Problem Qualifiers (1) Pancreatitis: Qualified Code: K85.20 - Alcohol-induced acute pancreatitis without infection or necrosis (2) Alcohol dependence: Qualified Code: F10.231 - Alcohol dependence with withdrawal delirium Rhys Mccann MD Sep 05, 2016 09:22
[2016-09-05 13:21] LABS: ANION GAP 10 MEQ/L (5-15); AST (GOT) 251 U/L (15-37); BICARBONATE 22.3 MEQ/L (21.0-32.0); BLOOD UREA NITROGEN 3 MG/DL (7-18); CHLORIDE 106 MEQ/L (98-107); GLOMERULAR FILTRATION RATE 201 ML/MIN (>89); MAGNESIUM 1.6 MG/DL (1.5-2.5); POTASSIUM 3.3 MEQ/L (3.5-5.1); SODIUM (NA) 138 MEQ/L (136-145)
[2016-09-05 13:35] LABS: ALKALINE PHOSPHATASE 92 U/L (45-117); ALT (GPT) 62 U/L (12-78); TOTAL BILIRUBIN ADULT 1.3 MG/DL (0.2-1.0)
[2016-09-05] MEDS: MULTIVITAMIN INJ 10 ML, FOLIC ACID INJ 1 MG in SODIUM CHLORID 0.9% 500 ML INJ 500 ML IV SCH (19:07)
[2016-09-05] MEDS: LORazepam 1 MG TAB PO PRN (19:14)
[2016-09-05] MEDS: THIAMINE INJ 100 MG in SODIUM CHLORIDE 0.9% INJ 100 ML IV SCH (21:24)
--- NOTE | 2016-09-05 21:52 | ECHRPT ---
Indication: murmur CONCLUSIONS Normal left ventricular size. Mild concentric left ventricular hypertrophy. The left ventricular systolic function is moderately reduced with an estimated ejection fraction in the range of 35-40%. Septal wall motion abnormality. Thickened MV posterior leaflet. Trace mitral regurgitation. There is mild tricuspid valve regurgitation. BP: 112 / 80 HR: 97 Rhythm: MEASUREMENTS (Male / Female) Normal Values Technical Quality:Fair 2D ECHO LV Diastolic Diameter PLAX 4.0 cm 4.2 - 5.9 / 3.9 - 5.3 cm LV Systolic Diameter PLAX 3.5 cm IVS Diastolic Thickness 1.6 cm 0.6 - 1.0 / 0.6 - 0.9 cm LVPW Diastolic Thickness 1.3 cm 0.6 - 1.0 / 0.6 - 0.9 cm LV Relative Wall Thickness 0.7 RV Internal Dim ED PLAX 2.9 cm M-MODE Aortic Root Diameter MM 3.5 cm LA Systolic Diameter MM 2.8 cm LA Ao Ratio MM 0.8 AV Cusp Separation MM 2.4 cm DOPPLER TR Peak Velocity 293.0 cm/s TR Peak Gradient 34.3 mmHg FINDINGS LEFT VENTRICLE Normal left ventricular size. Mild concentric left ventricular hypertrophy. The left ventricular systolic function is moderately reduced with an estimated ejection fraction in the range of 35-40%. Septal wall motion abnormality. RIGHT VENTRICLE Normal right ventricular size and systolic function. LEFT ATRIUM The left atrial size is normal. RIGHT ATRIUM The right atrial size is normal. ATRIAL SEPTUM Normal atrial septal thickness without atrial level shunting by limited color doppler interrogation. AORTA The aortic root and proximal ascending aorta are normal in size on limited imaging. MITRAL VALVE Thickened posterior leaflet. Trace mitral regurgitation. AORTIC VALVE Trileaflet aortic valve. No aortic valve stenosis or regurgitation. TRICUSPID VALVE Structurally normal tricuspid valve. There is mild tricuspid valve regurgitation. PULMONARY VALVE The pulmonary valve is not well visualized. VESSELS The inferior vena cava is normal in size. PERICARDIUM No pericardial effusion. Rashid Montes De Oca MD, FACC (Electronically Signed) Final Date:05 September 2016 21:51
[2016-09-06] VITALS (12 sets, daily range): BP systolic 94–131; BP diastolic 59–78; PULSE 79–133; RESP 20; TEMP 98–98.6; O2SAT 91–100
[2016-09-06] MEDS: chlordiazePOXIDE 25 MG CAP PO SCH ×4 (02:13→21:41)
[2016-09-06] MEDS: CHLORHEXIDINE GLUCONATE 2 % 1 PACK (2 CLOTHS)(taper/protocol) TOPICAL SCH (04:00)
[2016-09-06] MEDS: LORazepam 1 MG TAB PO PRN (05:01)
[2016-09-06] MEDS: NICOTINE 21 MG/24 HR PATCH T-DERMAL SCH (07:51)
[2016-09-06] MEDS: PANTOPRAZOLE SOD 40 MG DELAYED RELEASE TAB PO SCH (07:51)
[2016-09-06] MEDS: THIAMINE HCL 100 MG TAB PO SCH (07:51)
[2016-09-06] MEDS: DOCUSATE SODIUM 50 MG/SENNA 8.6 MG TAB PO SCH ×2 (07:51→21:41)
[2016-09-06] MEDS ORDERED: POTASSIUM CHLORIDE 10 MEQ CONTROLLED RELEASE TAB PO ONE (08:00)
--- NOTE | 2016-09-06 08:49 | HHI.PR ---
Subjective Remarks Follow up EtOH withdrawal. Patient is sedated. Per nursing, he has been doing better this morning. He is requesting to have his diet advanced. Objective Vitals Vital Signs Date Time Temp Pulse Resp B/P Pulse Ox O2 Delivery O2 Flow Rate FiO2 09/06/16 08:00 98.6 92 20 131/75 100 09/06/16 08:00 117 09/06/16 06:00 133 09/06/16 04:00 92 09/06/16 04:00 98.4 92 20 105/68 100 09/06/16 02:00 84 09/06/16 00:00 79 09/06/16 00:00 98.4 79 20 116/78 100 09/05/16 22:00 122 09/05/16 20:00 98.4 96 22 106/58 100 09/05/16 20:00 96 09/05/16 18:00 97 09/05/16 16:00 98.6 110 16 110/80 97 09/05/16 16:00 97 09/05/16 16:00 97 09/05/16 14:00 97 09/05/16 12:00 98.5 112 16 108/74 09/05/16 12:00 97 09/05/16 10:00 97 I/O 09/05/16 09/05/16 09/05/16 09/06/16 09/06/16 09/06/16 06:59 14:59 22:59 06:59 14:59 22:59 Intake Total 1355 ml 550 ml 930 ml 1039 ml Output Total 1075 ml 1200 ml 1200 ml 800 ml Balance 280 ml -650 ml -270 ml 239 ml Intake Oral 480 ml 550 ml 200 ml 100 ml IV Total 875 ml 730 ml 939 ml Output Urine Total 1075 ml 1200 ml 1200 ml 800 ml # Bowel Movements 0 0 Result Diagram: 09/03/16 1224 09/05/16 1219 Imaging Last Impressions Abdomen/Pelvis CT 09/03/167 Signed Impressions: Service Date/Time: Saturday, September 03, 2016 14:07 - CONCLUSION: 1. Fatty liver. 2. Chronic spondylolysis bilateral L5. Crystal Vazquez MD Head CT 09/03/16 0000 Signed Impressions: Service Date/Time: Saturday, September 03, 2016 18:31 - CONCLUSION: Unremarkable study. Crystal Vazquez MD Objective Remarks General: Sleeping/sedated. Heart: Tachycardic. 2/6 murmur. Lungs: Clear to auscultation bilaterally. No wheezes, rales, or rhonchi. Breathing is nonlabored. Abdomen: Soft, nontender, nondistended. Extremities: No lower extremity edema. Psych: Sleeping/sedated. Procedures None Urinary Catheter: No Vascular Central Line Catheter: No A/P Problem List: (1) Pancreatitis ICD Code: K85.90 Status: Acute (2) Hypomagnesemia ICD Code: E83.42 Status: Acute (3) Hypokalemia ICD Code: E87.6 Status: Acute (4) Hyperlipidemia ICD Code: E78.5 Status: Acute (5) GERD (gastroesophageal reflux disease) ICD Code: K21.9 Status: Acute (6) Alcohol withdrawal ICD Code: F10.239 Status: Acute (7) Alcohol dependence ICD Code: F10.20 Status: Acute (8) Alcohol abuse ICD Code: F10.10 Status: Acute (9) Diplopia ICD Code: H53.2 Status: Acute (10) Heart murmur ICD Code: R01.1 Status: Acute Assessment and Plan 1. Alcohol withdrawal: Continue CIWA protocol. Seizure, alcohol withdrawal precautions. Multivitamin, thiamine, folic acid. Has developed hallucinations. Taper Librium. Improving overall. 2. Hypokalemia: Continue potassium supplementation. Recheck labs in the morning. 3. Hypomagnesemia: Improved. 4. Diplopia: Patient has had multiple recent falls and has reportedly hit his head. Head CT is negative. Ophthalmology consult is pending. 5. DVT prophylaxis: SCDs, PORSHA smith. 6. Heart murmur: Patient was unaware of a murmur and has never had an echocardiogram. 2D echo report noted. 7. Pancreatitis: Lipase trending down. Monitor labs. Advance diet and monitor for worsening symptoms. 8. ?PTSD: Appreciate psychiatry recommendations. Problem Qualifiers (1) Pancreatitis: Qualified Code: K85.20 - Alcohol-induced acute pancreatitis without infection or necrosis (2) Alcohol dependence: Qualified Code: F10.231 - Alcohol dependence with withdrawal delirium Rhys Mccann MD Sep 06, 2016 08:49
[2016-09-06 08:52] LABS: MEAN CORPUSCULAR HGB CONC 36.3 % (32.0-36.0)
[2016-09-06 10:14] LABS: AUTOMATED NEUTROPHIL # 3.3 TH/MM3 (1.8-7.7); BASOPHIL # 0.1 TH/MM3 (0-0.2); BASOPHIL % 1.6 % (0.0-2.0); EOSINOPHIL # 0.1 TH/MM3 (0-0.4); EOSINOPHIL % 2.5 % (0.0-4.0); HEMATOCRIT 35.1 % (39.0-51.0); LYMPH % 26.5 % (9.0-44.0); LYMPHOCYTE # 1.5 TH/MM3 (1.0-4.8); MEAN CELL VOLUME 108.8 FL (80.0-100.0); MEAN CORPUSCULAR HEMOGLOBIN 39.5 PG (27.0-34.0); NEUT % 59.4 % (16.0-70.0); PLATELET COUNT 124 TH/MM3 (150-450); RED BLOOD COUNT 3.22 MIL/MM3 (4.50-5.90); RED CELL DISTRIBUTION WIDTH 13.6 % (11.6-17.2); WHITE BLOOD COUNT 5.6 TH/MM3 (4.0-11.0)
[2016-09-06 10:20] LABS: HEMO FLAGS AUTO DIFF
[2016-09-06 10:35] LABS: ALT (GPT) 70 U/L (12-78); ANION GAP 10 MEQ/L (5-15); AST (GOT) 167 U/L (15-37); BICARBONATE 21.7 MEQ/L (21.0-32.0); BLOOD UREA NITROGEN 1 MG/DL (7-18); CHLORIDE 109 MEQ/L (98-107); GLOMERULAR FILTRATION RATE 191 ML/MIN (>89); POTASSIUM 3.7 MEQ/L (3.5-5.1); SODIUM (NA) 141 MEQ/L (136-145)
[2016-09-06 10:38] LABS: ALKALINE PHOSPHATASE 97 U/L (45-117); TOTAL BILIRUBIN ADULT 1.1 MG/DL (0.2-1.0)
[2016-09-06 11:05] LABS: OVALOCYTES 1+ (NORMAL); PLATELET ESTIMATE SMEAR LOW (NORMAL); PLATELET MORPHOLOGY NORMAL (NORMAL); SCAN/DIFF AUTO DIFF CONFIRMED
[2016-09-06] MEDS: MULTIVITAMIN INJ 10 ML, FOLIC ACID INJ 1 MG in SODIUM CHLORID 0.9% 500 ML INJ 500 ML IV SCH (17:17)
--- NOTE | 2016-09-06 20:33 | PD.CONS ---
History of Present Illness Service Ophthalmology Consult Requested By Reason for Consult diplopia Primary Care Physician [facility] Diagnoses: History of Present Illness 46 yo M who presents to ED with complaints of abdominal pain, nausea, vomiting that started a few days prior to his arrival. He has been going through alcohol withdrawal the last few days he has been here in the hospital. He states that about 1 week ago he developed double vision, and it has not improved. It is constant, binocular, and diagonal. He still states that he has fallen multiple times recently and has hit his head on many of those occasions. He can't remember if his double vision started after his falls or before. No significant ocular history. Past Family Social History Allergies: Coded Allergies: No Known Allergies (Unverified , 09/03/16) Physical Exam Vital Signs Vital Signs Date Time Temp Pulse Resp B/P Pulse Ox O2 Delivery O2 Flow Rate FiO2 09/06/16 18:00 89 09/06/16 16:00 89 09/06/16 16:00 98.0 90 20 112/68 99 09/06/16 14:00 101 09/06/16 12:00 98.6 101 20 94/65 100 09/06/16 12:00 101 09/06/16 10:00 117 09/06/16 10:00 98.6 92 20 131/75 100 09/06/16 08:00 98.6 92 20 131/75 100 09/06/16 08:00 117 09/06/16 06:00 133 09/06/16 04:00 92 09/06/16 04:00 98.4 92 20 105/68 100 09/06/16 02:00 84 09/06/16 00:00 79 09/06/16 00:00 98.4 79 20 116/78 100 09/05/16 22:00 122 Physical Exam Va cc at near OD 20/20, OS 20/20 EOM full OU, diplopia in all directions of gaze - worse on left head tilt CVF full OU Pupils 2-1 no APD OU IOP normal to palpation OU Anterior exam OD - normal eyelid, C/S W&Q, K clear, AC deep, pupil round, lens clear OS - normal eyelid, C/S W&Q, K clear, AC deep, pupil round, lens clear Laboratory Laboratory Tests Test 09/06/16 09:44 White Blood Count 5.6 Red Blood Count 3.22 Hemoglobin 12.7 Hematocrit 35.1 Mean Corpuscular Volume 108.8 Mean Corpuscular Hemoglobin 39.5 Mean Corpuscular Hemoglobin 36.3 Concent Red Cell Distribution Width 13.6 Platelet Count 124 Mean Platelet Volume 8.4 Neutrophils (%) (Auto) 59.4 Lymphocytes (%) (Auto) 26.5 Monocytes (%) (Auto) 10.0 Eosinophils (%) (Auto) 2.5 Basophils (%) (Auto) 1.6 Neutrophils # (Auto) 3.3 Lymphocytes # (Auto) 1.5 Monocytes # (Auto) 0.6 Eosinophils # (Auto) 0.1 Basophils # (Auto) 0.1 CBC Comment AUTO DIFF Differential Comment AUTO DIFF CONFIRMED Platelet Estimate LOW Platelet Morphology Comment NORMAL Ovalocytes 1+ Sodium Level 141 Potassium Level 3.7 Chloride Level 109 Carbon Dioxide Level 21.7 Anion Gap 10 Blood Urea Nitrogen 1 Creatinine 0.47 Estimat Glomerular Filtration 191 Rate Random Glucose 77 Calcium Level 7.8 Total Bilirubin 1.1 Aspartate Amino Transf 167 (AST/SGOT) Alanine Aminotransferase 70 (ALT/SGPT) Alkaline Phosphatase 97 Total Protein 5.6 Albumin 2.7 Lipase 507 Result Diagram: 09/06/1644 09/06/1644 Assessment and Plan Problem List: (1) Cranial nerve IV palsy Status: Acute Plan: Most likely caused by head trauma during one of his recent falls. I advised pt to cover one eye for symptomatic relief while in the hospital. He is to follow up as an outpatient so I can do a more thorough exam and measure him for prism in his glasses until his diplopia resolves. Meri Sanchez MD Sep 06, 2016 20:33
[2016-09-06] MEDS: LORazepam 2 MG/ML VIAL IV PUSH PRN (22:42)
[2016-09-06] MEDS: NS + KCL 20 MEQ INJ 1,000 ML IV SCH ×2 (23:09→23:12)
[2016-09-07] VITALS (18 sets, daily range): BP systolic 99–136; BP diastolic 56–80; PULSE 76–140; RESP 13–27; TEMP 97.8–99.9; O2SAT 87–100
[2016-09-07] MEDS: chlordiazePOXIDE 25 MG CAP PO SCH ×3 (02:13→20:43)
[2016-09-07] MEDS: CHLORHEXIDINE GLUCONATE 2 % 1 PACK (2 CLOTHS)(taper/protocol) TOPICAL SCH (02:13)
[2016-09-07] MEDS: NS + KCL 20 MEQ INJ 1,000 ML IV SCH ×2 (03:31→20:43)
[2016-09-07 05:46] LABS: AUTOMATED NEUTROPHIL # 3.4 TH/MM3 (1.8-7.7); BASOPHIL # 0.1 TH/MM3 (0-0.2); BASOPHIL % 1.2 % (0.0-2.0); EOSINOPHIL # 0.1 TH/MM3 (0-0.4); EOSINOPHIL % 1.8 % (0.0-4.0); HEMO FLAGS DIFF FINAL; LYMPH % 21.9 % (9.0-44.0); LYMPHOCYTE # 1.1 TH/MM3 (1.0-4.8); MEAN CELL VOLUME 111.8 FL (80.0-100.0); MEAN CORPUSCULAR HEMOGLOBIN 39.1 PG (27.0-34.0); MONO % 10.5 % (0.0-8.0); NEUT % 64.6 % (16.0-70.0); PLATELET COUNT 148 TH/MM3 (150-450); RED BLOOD COUNT 3.22 MIL/MM3 (4.50-5.90); RED CELL DISTRIBUTION WIDTH 13.8 % (11.6-17.2); WHITE BLOOD COUNT 5.2 TH/MM3 (4.0-11.0)
[2016-09-07] MEDS: LORazepam 1 MG TAB PO PRN (05:47)
[2016-09-07 06:07] LABS: ANION GAP 9 MEQ/L (5-15); AST (GOT) 119 U/L (15-37); BICARBONATE 22.5 MEQ/L (21.0-32.0); BLOOD UREA NITROGEN 2 MG/DL (7-18); CHLORIDE 109 MEQ/L (98-107); GLOMERULAR FILTRATION RATE 196 ML/MIN (>89); POTASSIUM 3.5 MEQ/L (3.5-5.1); SODIUM (NA) 140 MEQ/L (136-145)
[2016-09-07 06:08] LABS: ALT (GPT) 70 U/L (12-78)
[2016-09-07 06:10] LABS: ALKALINE PHOSPHATASE 98 U/L (45-117); TOTAL BILIRUBIN ADULT 0.9 MG/DL (0.2-1.0)
[2016-09-07] MEDS: REMOVE OLD PATCH T-DERMAL SCH (08:33)
[2016-09-07] MEDS: PANTOPRAZOLE SOD 40 MG DELAYED RELEASE TAB PO SCH (08:34)
[2016-09-07] MEDS: THIAMINE HCL 100 MG TAB PO SCH (08:34)
[2016-09-07] MEDS: DOCUSATE SODIUM 50 MG/SENNA 8.6 MG TAB PO SCH ×2 (08:35→20:42)
--- NOTE | 2016-09-07 08:57 | HHI.PR ---
Subjective Remarks Follow-up alcohol withdrawal. Patient states that he feels better today. He is no longer requiring restraints. Shaking has improved. No specific complaints at this time. Objective Vitals Vital Signs Date Time Temp Pulse Resp B/P Pulse Ox O2 Delivery O2 Flow Rate FiO2 09/07/16 06:00 99 09/07/16 04:00 98.8 90 20 99/65 99 09/07/16 04:00 90 09/07/16 02:00 79 09/07/16 00:00 76 09/07/16 00:00 98.5 76 22 107/59 96 09/06/16 22:00 87 09/06/16 20:00 98.5 90 20 117/59 91 09/06/16 20:00 90 09/06/16 18:00 89 09/06/16 16:00 89 09/06/16 16:00 98.0 90 20 112/68 99 09/06/16 14:00 101 09/06/16 12:00 98.6 101 20 94/65 100 09/06/16 12:00 101 09/06/16 10:00 117 09/06/16 10:00 98.6 92 20 131/75 100 I/O 09/06/16 09/06/16 09/06/16 09/07/16 09/07/16 09/07/16 07:00 15:00 23:00 07:00 15:00 23:00 Intake Total 1039 ml 1360 ml 595 ml 1024 ml Output Total 800 ml 1200 ml 1100 ml 900 ml Balance 239 ml 160 ml -505 ml 124 ml Intake Oral 100 ml 380 ml 200 ml 0 ml IV Total 939 ml 980 ml 395 ml 1024 ml Output Urine Total 800 ml 1200 ml 1100 ml 900 ml # Bowel Movements 0 0 0 0 Result Diagram: 09/07/16 0434 09/07/16 0434 Imaging Last Impressions Abdomen/Pelvis CT 09/03/16 1217 Signed Impressions: Service Date/Time: Saturday, September 03, 2016 14:07 - CONCLUSION: 1. Fatty liver. 2. Chronic spondylolysis bilateral L5. Crystal Vazquez MD Head CT 09/03/16 0000 Signed Impressions: Service Date/Time: Saturday, September 03, 2016 18:31 - CONCLUSION: Unremarkable study. Crystal Vazquez MD Objective Remarks General: No acute distress. Mildly tremulous. Heart: Regular rate and rhythm. 2/6 murmur. Lungs: Clear to auscultation bilaterally. No wheezes, rales, or rhonchi. Breathing is nonlabored. Abdomen: Soft, nontender, nondistended. Extremities: No lower extremity edema. Psych: Alert, oriented. Procedures None Urinary Catheter: No Vascular Central Line Catheter: No A/P Problem List: (1) Pancreatitis ICD Code: K85.90 Status: Acute (2) Hypomagnesemia ICD Code: E83.42 Status: Acute (3) Hypokalemia ICD Code: E87.6 Status: Acute (4) Hyperlipidemia ICD Code: E78.5 Status: Acute (5) GERD (gastroesophageal reflux disease) ICD Code: K21.9 Status: Acute (6) Alcohol withdrawal ICD Code: F10.239 Status: Acute (7) Alcohol dependence ICD Code: F10.20 Status: Acute (8) Alcohol abuse ICD Code: F10.10 Status: Acute (9) Diplopia ICD Code: H53.2 Status: Acute (10) Heart murmur ICD Code: R01.1 Status: Acute Assessment and Plan 1. Alcohol withdrawal: Continue CIWA protocol. Seizure, alcohol withdrawal precautions. Multivitamin, thiamine, folic acid. Has developed hallucinations. Taper Librium. Improving. 2. Hypokalemia: Continue potassium supplementation in IV fluids. Recheck labs in the morning. 3. Hypomagnesemia: Improved. 4. Diplopia: Patient has had multiple recent falls and has reportedly hit his head. Head CT is negative. Appreciate ophthalmology recommendations. Follow-up as outpatient. 5. DVT prophylaxis: PORSHA Padilla. 6. Heart murmur: 2D echo report noted. 7. Pancreatitis: Continue IV fluids. Monitor labs. Advance diet and monitor for worsening symptoms. 8. ?PTSD: Appreciate psychiatry recommendations. Discharge Planning Transfer to medical/surgical floor with telemetry. Possible discharge home next 1-2 days. Problem Qualifiers (1) Pancreatitis: Qualified Code: K85.20 - Alcohol-induced acute pancreatitis without infection or necrosis (2) Alcohol dependence: Qualified Code: F10.231 - Alcohol dependence with withdrawal delirium Rhys Mccann MD Sep 07, 2016 08:57
[2016-09-07] MEDS ORDERED: POTASSIUM CHLORIDE 20 MEQ CONTROLLED RELEASE TAB PO ONE (09:00)
[2016-09-07] MEDS: NICOTINE 21 MG/24 HR PATCH T-DERMAL SCH (10:08)
[2016-09-07] MEDS: MULTIVITAMIN INJ 10 ML, FOLIC ACID INJ 1 MG in SODIUM CHLORID 0.9% 500 ML INJ 500 ML IV SCH (16:45)
[2016-09-08] VITALS (7 sets, daily range): BP systolic 89–114; BP diastolic 51–68; PULSE 14–115; RESP 16–18; TEMP 96.9–98.9; O2SAT 97–100
[2016-09-08] MEDS: CHLORHEXIDINE GLUCONATE 2 % 1 PACK (2 CLOTHS)(taper/protocol) TOPICAL SCH (04:00)
[2016-09-08] MEDS: chlordiazePOXIDE 25 MG CAP PO SCH ×3 (06:19→22:00)
[2016-09-08] MEDS: NS + KCL 20 MEQ INJ 1,000 ML IV SCH ×2 (06:19→16:15)
--- NOTE | 2016-09-08 08:37 | HHI.PR ---
Subjective Remarks Follow up EtOH withdrawal, pancreatitis. Patient states that he is feeling better, but his legs are very weak. He denies chest pain, dyspnea. No nausea/ vomiting. Still has double vision, but feels that it is improving. Objective Vitals Vital Signs Date Time Temp Pulse Resp B/P Pulse Ox O2 Delivery O2 Flow Rate FiO2 09/08/16 04:00 108 09/08/16 04:00 97.7 106 16 105/68 100 09/08/16 00:45 114 09/08/16 00:00 98.9 115 16 94/54 100 09/07/16 20:00 97.8 123 16 114/65 100 09/07/16 16:00 99.9 140 20 122/80 97 09/07/16 16:00 140 09/07/16 15:00 119 19 112/72 87 09/07/16 14:00 128 16 104/71 09/07/16 14:00 128 09/07/16 13:01 138 25 127/56 09/07/16 13:00 135 18 09/07/16 12:00 117 09/07/16 12:00 99.9 117 17 131/61 99 09/07/16 11:00 124 27 09/07/16 10:08 124 26 136/66 09/07/16 10:00 119 09/07/16 09:14 117 15 100/72 100 09/07/16 09:00 126 20 99 I/O 09/07/16 09/07/16 09/07/16 09/08/16 09/08/16 09/08/16 06:59 14:59 22:59 06:59 14:59 22:59 Intake Total 1024 ml 1018 ml 850 ml 860 ml Output Total 900 ml 400 ml 400 ml 700 ml Balance 124 ml 618 ml 450 ml 160 ml Intake Oral 0 ml 500 ml 350 ml 360 ml IV Total 1024 ml 518 ml 500 ml 500 ml Output Urine Total 900 ml 400 ml 400 ml 700 ml # Voids 3 # Bowel Movements 0 0 0 0 Result Diagram: 09/07/16 0434 09/07/16 0434 Imaging Last Impressions Abdomen/Pelvis CT 09/03/16 1217 Signed Impressions: Service Date/Time: Saturday, September 03, 2016 14:07 - CONCLUSION: 1. Fatty liver. 2. Chronic spondylolysis bilateral L5. K. Cj Vazquez, MD Head CT 09/03/16 0000 Signed Impressions: Service Date/Time: Saturday, September 03, 2016 18:31 - CONCLUSION: Unremarkable study. Crystal Vazquez MD Objective Remarks General: No acute distress. Mildly tremulous. Heart: Regular rate and rhythm. 2/6 murmur. Lungs: Clear to auscultation bilaterally. No wheezes, rales, or rhonchi. Breathing is nonlabored. Abdomen: Soft, nontender, nondistended. Extremities: No lower extremity edema. Weakness of both legs noted, 3-4/5 on flexion and extension of feet at the ankles. Psych: Alert, oriented. Procedures None Urinary Catheter: No Vascular Central Line Catheter: No A/P Problem List: (1) Pancreatitis ICD Code: K85.90 Status: Acute (2) Hypomagnesemia ICD Code: E83.42 Status: Acute (3) Hypokalemia ICD Code: E87.6 Status: Acute (4) Hyperlipidemia ICD Code: E78.5 Status: Acute (5) GERD (gastroesophageal reflux disease) ICD Code: K21.9 Status: Acute (6) Alcohol withdrawal ICD Code: F10.239 Status: Acute (7) Alcohol dependence ICD Code: F10.20 Status: Acute (8) Alcohol abuse ICD Code: F10.10 Status: Acute (9) Diplopia ICD Code: H53.2 Status: Acute (10) Heart murmur ICD Code: R01.1 Status: Acute Assessment and Plan 1. Alcohol withdrawal: Continue CIWA protocol. Seizure, alcohol withdrawal precautions. Multivitamin, thiamine, folic acid. Has developed hallucinations. Taper Librium. Improving. 2. Hypokalemia: Continue potassium supplementation in IV fluids. Labs are pending this morning. 3. Hypomagnesemia: Improved. Monitor labs. 4. Diplopia: Patient has had multiple recent falls and has reportedly hit his head. Head CT is negative. Appreciate ophthalmology recommendations. Follow-up as outpatient. 5. DVT prophylaxis: PORSHA Padilla. 6. Heart murmur: 2D echo report noted. 7. Pancreatitis: Continue IV fluids. Monitor labs. Advance diet and monitor for worsening symptoms. Lipase pending this morning. 8. ?PTSD: Appreciate psychiatry recommendations. 9. Lower extremity weakness: PT eval. Discharge Planning Possible discharge home next 1-2 days. Problem Qualifiers (1) Pancreatitis: Qualified Code: K85.20 - Alcohol-induced acute pancreatitis without infection or necrosis (2) Alcohol dependence: Qualified Code: F10.231 - Alcohol dependence with withdrawal delirium Rhys Mccann MD Sep 08, 2016 08:37
[2016-09-08 09:06] LABS: ALKALINE PHOSPHATASE 106 U/L (45-117); ALT (GPT) 73 U/L (12-78); ANION GAP 9 MEQ/L (5-15); AST (GOT) 97 U/L (15-37); BLOOD UREA NITROGEN 3 MG/DL (7-18); CHLORIDE 108 MEQ/L (98-107); GLOMERULAR FILTRATION RATE 142 ML/MIN (>89); POTASSIUM 4.2 MEQ/L (3.5-5.1); SODIUM (NA) 140 MEQ/L (136-145)
[2016-09-08] MEDS: THIAMINE HCL 100 MG TAB PO SCH (09:18)
[2016-09-08] MEDS: PANTOPRAZOLE SOD 40 MG DELAYED RELEASE TAB PO SCH (09:18)
[2016-09-08] MEDS: DOCUSATE SODIUM 50 MG/SENNA 8.6 MG TAB PO SCH ×2 (09:18→22:25)
[2016-09-08] MEDS: NICOTINE 21 MG/24 HR PATCH T-DERMAL SCH (09:20)
[2016-09-08] MEDS: REMOVE OLD PATCH T-DERMAL SCH (11:16)
[2016-09-09] VITALS (8 sets, daily range): BP systolic 97–118; BP diastolic 63–70; PULSE 94–116; RESP 16–20; TEMP 97–98; O2SAT 99–100
[2016-09-09] MEDS: NS + KCL 20 MEQ INJ 1,000 ML IV SCH ×3 (02:14→22:00)
[2016-09-09] MEDS: chlordiazePOXIDE 25 MG CAP PO SCH ×2 (05:19→21:04)
[2016-09-09 06:55] LABS: AUTOMATED NEUTROPHIL # 2.3 TH/MM3 (1.8-7.7); BASOPHIL # 0.1 TH/MM3 (0-0.2); EOSINOPHIL # 0.1 TH/MM3 (0-0.4); EOSINOPHIL % 2.1 % (0.0-4.0); HEMATOCRIT 36.2 % (39.0-51.0); HEMO FLAGS DIFF FINAL; LYMPH % 30.9 % (9.0-44.0); LYMPHOCYTE # 1.6 TH/MM3 (1.0-4.8); MEAN CORPUSCULAR HEMOGLOBIN 39.1 PG (27.0-34.0); MEAN CORPUSCULAR HGB CONC 34.6 % (32.0-36.0); MONO % 20.9 % (0.0-8.0); NEUT % 45.1 % (16.0-70.0); PLATELET COUNT 214 TH/MM3 (150-450); WHITE BLOOD COUNT 5.1 TH/MM3 (4.0-11.0)
[2016-09-09 07:14] LABS: BICARBONATE 24.7 MEQ/L (21.0-32.0); MAGNESIUM 1.6 MG/DL (1.5-2.5); POTASSIUM 3.8 MEQ/L (3.5-5.1)
[2016-09-09] MEDS: PANTOPRAZOLE SOD 40 MG DELAYED RELEASE TAB PO SCH (08:01)
[2016-09-09] MEDS: THIAMINE HCL 100 MG TAB PO SCH (08:01)
[2016-09-09] MEDS: DOCUSATE SODIUM 50 MG/SENNA 8.6 MG TAB PO SCH ×2 (08:01→21:04)
[2016-09-09] MEDS: REMOVE OLD PATCH T-DERMAL SCH (08:02)
[2016-09-09] MEDS: NICOTINE 21 MG/24 HR PATCH T-DERMAL SCH (08:02)
--- NOTE | 2016-09-09 10:11 | HHI.PR ---
Subjective Remarks Follow up EtOH withdrawal, lower extremity weakness. The patient reports significant weakness in both lower legs. Was not able to ambulate much with PT yesterday. No chest pain, dyspnea. Withdrawal symptoms are much better. Diplopia still present, but a little better. Objective Vitals Vital Signs Date Time Temp Pulse Resp B/P Pulse Ox O2 Delivery O2 Flow Rate FiO2 09/09/16 08:00 97.0 106 20 97/65 100 09/09/16 04:00 97.4 100 16 98/63 100 09/09/16 04:00 97 09/09/16 00:00 97.1 116 16 97/68 100 09/09/16 00:00 100 09/08/16 20:00 100 09/08/16 20:00 96.9 96 16 89/53 100 09/08/16 16:00 98.0 14 18 114/62 100 09/08/16 12:00 97.6 114 16 114/59 97 I/O 09/08/16 09/08/16 09/08/16 09/09/16 09/09/16 09/09/16 07:00 15:00 23:00 07:00 15:00 23:00 Intake Total 860 ml 240 ml 1610 ml 1250 ml Output Total 700 ml 1650 ml 950 ml 300 ml Balance 160 ml 240 ml -40 ml 300 ml -300 ml Intake Oral 360 ml 240 ml 810 ml 450 ml IV Total 500 ml 800 ml 800 ml Output Urine Total 700 ml 1650 ml 950 ml 300 ml # Voids 3 4 # Bowel Movements 0 0 0 1 Result Diagram: 09/09/16 0533 09/09/16 0533 Imaging Last Impressions Abdomen/Pelvis CT 09/03/16 1217 Signed Impressions: Service Date/Time: Saturday, September 03, 2016 14:07 - CONCLUSION: 1. Fatty liver. 2. Chronic spondylolysis bilateral L5. Crystal Vazquez MD Head CT 09/03/16 0000 Signed Impressions: Service Date/Time: Saturday, September 03, 2016 18:31 - CONCLUSION: Unremarkable study. Crystal Vazquez MD Objective Remarks General: No acute distress. Mildly tremulous. Heart: Regular rate and rhythm. 2/6 murmur. Lungs: Clear to auscultation bilaterally. No wheezes, rales, or rhonchi. Breathing is nonlabored. Abdomen: Soft, nontender, nondistended. Extremities: No lower extremity edema. Weakness of both legs noted, 3/5 on flexion and extension of feet at the ankles; more weak than yesterday. Psych: Alert, oriented. Procedures None Urinary Catheter: No Vascular Central Line Catheter: No A/P Problem List: (1) Pancreatitis ICD Code: K85.90 Status: Acute (2) Hypomagnesemia ICD Code: E83.42 Status: Acute (3) Hypokalemia ICD Code: E87.6 Status: Acute (4) Hyperlipidemia ICD Code: E78.5 Status: Acute (5) GERD (gastroesophageal reflux disease) ICD Code: K21.9 Status: Acute (6) Alcohol withdrawal ICD Code: F10.239 Status: Acute (7) Alcohol dependence ICD Code: F10.20 Status: Acute (8) Alcohol abuse ICD Code: F10.10 Status: Acute (9) Diplopia ICD Code: H53.2 Status: Acute (10) Heart murmur ICD Code: R01.1 Status: Acute Assessment and Plan 1. Alcohol withdrawal: Continue CIWA protocol. Seizure, alcohol withdrawal precautions. Multivitamin, thiamine, folic acid. Has developed hallucinations. Taper Librium. Improving. 2. Hypokalemia: Continue potassium supplementation in IV fluids. Improved. 3. Hypomagnesemia: Improved. 4. Diplopia: Patient has had multiple recent falls and has reportedly hit his head. Head CT is negative. Appreciate ophthalmology recommendations. Follow-up as outpatient. 5. DVT prophylaxis: PORSHA Padilla. 6. Heart murmur: 2D echo report noted. 7. Pancreatitis: Continue IV fluids. Monitor labs. Advance diet and monitor for worsening symptoms. Lipase increased this morning. 8. ?PTSD: Appreciate psychiatry recommendations. 9. Lower extremity weakness: Continue PT. Patient's weakness seems to be worsening. Check MRI of L-spine. Consult neurology. Check B12, sed rate. Discharge Planning Patient may need SNF/rehab at discharge vs home health care. Discharge pending further workup of lower extremity weakness. Problem Qualifiers (1) Pancreatitis: Qualified Code: K85.20 - Alcohol-induced acute pancreatitis without infection or necrosis (2) Alcohol dependence: Qualified Code: F10.231 - Alcohol dependence with withdrawal delirium Rhys Mccann MD Sep 09, 2016 10:11
--- NOTE | 2016-09-09 17:24 | MB ---
cc: ARTIS BENÍTEZ MD DATE OF CONSULTATION: 09/09/2016. REASON FOR CONSULTATION: Bilateral weakness lower extremities. HISTORY OF PRESENT ILLNESS: Mr. Fremean is a 46-year-old male who presented on 09/03/2016 to the emergency room at [facility] with complaints of abdominal pain, vomiting, nausea. He is an alcoholic and wants to stop drinking. He drinks half a gallon of vodka daily. He has history of alcohol withdrawal seizures ten years ago and he has developed double vision two days ago. The patient states that he has had weakness of both lower extremities of five months duration that has been slowly and gradually progressing. He has noticed that over the last two weeks he has difficulty in holding his urine and he has had accidents. He denies any difficulty in his bowel control though. He also complains of severe burning in bilateral feet and numbness in the legs. He denies any weakness in the back, injury to the back, neck injury or weakness of the upper extremities. REVIEW OF SYSTEMS: A twelve-point review of systems was negative except as stated in the history of present illness. PAST MEDICAL HISTORY: 1. Hyperlipidemia. 2. Alcohol abuse. 3. Gastroesophageal reflux disease (GERD). PAST SURGICAL HISTORY: Noncontributory. ALLERGIES: NO KNOWN ALLERGIES. FAMILY HISTORY: Hypertension and breast cancer. SOCIAL HISTORY: Smokes smokeless tobacco. Drinks half a gallon of vodka daily. He denies illicit drug abuse. PHYSICAL EXAMINATION: GENERAL: The patient is not in acute distress, lethargic. Good historian. HEAD, EYES, EARS, NOSE, THROAT: Normocephalic and atraumatic. Intact hearing. Intact vision. He states that he sees double vision at times. CARDIOVASCULAR: Regular rate and rhythm. RESPIRATORY: Clear to auscultation. No wheezes. GASTROINTESTINAL: The abdomen is soft, nontender. MUSCULOSKELETAL: No cyanosis or edema. The patient is pale. NEUROLOGICAL EXAMINATION: Awake, alert and oriented to time, person and place. Slightly dysarthric speech. Pupils are bilaterally symmetric equal to light. Bilateral horizontal nystagmus. Horizontal diplopia. No facial asymmetry. Upper extremity motor examination is 5/5 bilateral symmetrical with bilateral hand tremor. Normal tone. Lower extremities with weak bilateral hip flexion at 5-/5. Knee extension 5-/5. Foot dorsiflexion 4+/5. Foot plantar flexion 4-/5. No abnormal movements. Decreased tone. Reflexes bilateral upper extremities 2+. No finger flexion. Lower extremities 1+ ankle reflexes sluggish to absent. Plantars hard to elicit because of the severe burning. Decreased sensation in both legs, hypersensitive both feet. Questionable sensory level at the T10. PSYCHIATRIC: Cooperative. No hallucinations. DIAGNOSTICS: LABORATORY STUDIES: White blood cell count 5.1, hemoglobin 12.5, platelet count 214,000. Sedimentation rate 32. Sodium 141, potassium 3.8, BUN 5, creatinine 0.65. Abnormal liver function tests. AST 97. ALT 73. Alkaline phosphatase 106. Total protein 6. Lipase 650. Vitamin B12 987. Ethyl alcohol initially 142 on admission. DIAGNOSTIC IMAGING: - Head CT scan w/o c: No evidence of intracranial hemorrhage, mass effect or mass lesion. DIAGNOSTIC IMPRESSION: 1. Paraplegia. 2. Nystagmus ophthalmoplegia possible Wernicke's encephalopathy. 3. Alcohol abuse. PLAN: 1. Neuro checks q. 4 hourly. 2. CIWA protocol. 3. MRI lumbar spine without contrast. 4. Sedimentation rate, B12. 5. DVT prophylaxis. 6. Physical therapy and occupational therapy recommendations are appreciated. 7. GI prophylaxis. Thank you for the opportunity to participate in the care of your patient. MD HENNA Stephens/NENITA /4:06 PM /5:13 PM GIRISH
[2016-09-10] VITALS (9 sets, daily range): BP systolic 98–106; BP diastolic 56–66; PULSE 89–112; RESP 12–18; TEMP 96–98; O2SAT 98–100
[2016-09-10] MEDS: NS + KCL 20 MEQ INJ 1,000 ML IV SCH (01:36)
[2016-09-10] MEDS: LORazepam 1 MG TAB PO PRN ×3 (01:36→13:52)
[2016-09-10 07:42] LABS: ANION GAP 6 MEQ/L (5-15); AST (GOT) 47 U/L (15-37); BICARBONATE 26.7 MEQ/L (21.0-32.0); BLOOD UREA NITROGEN 4 MG/DL (7-18); CHLORIDE 108 MEQ/L (98-107); GLOMERULAR FILTRATION RATE 153 ML/MIN (>89); POTASSIUM 3.6 MEQ/L (3.5-5.1); SODIUM (NA) 141 MEQ/L (136-145)
[2016-09-10 07:47] LABS: ALKALINE PHOSPHATASE 94 U/L (45-117); ALT (GPT) 55 U/L (12-78); TOTAL BILIRUBIN ADULT 0.6 MG/DL (0.2-1.0)
--- NOTE | 2016-09-10 08:24 | HHI.PR ---
Subjective Remarks Patient tells me that his feeling better. Diplopia is improving a lot. Weakness in his lower extremities is about the same. He tried to get up with physical therapy yesterday and only could take 2 steps. Denies any chest pain, shortness of breath, nausea or vomiting. Objective Vitals Vital Signs Date Time Temp Pulse Resp B/P Pulse Ox O2 Delivery O2 Flow Rate FiO2 09/10/16 04:33 102 09/10/16 04:00 96.9 102 18 98/62 98 09/10/16 00:20 89 09/10/16 00:00 17 09/09/16 20:01 94 09/09/16 20:00 98.0 97 18 110/70 100 09/09/16 16:28 103 09/09/16 16:00 97.2 103 18 118/70 99 09/09/16 12:00 97.1 107 20 100/67 100 I/O 09/09/16 09/09/16 09/09/16 09/10/16 09/10/16 09/10/16 07:00 15:00 23:00 07:00 15:00 23:00 Intake Total 1250 ml 480 ml 480 ml 240 ml Output Total 950 ml 675 ml 1150 ml 750 ml Balance 300 ml -195 ml -670 ml -510 ml Intake Oral 450 ml 480 ml 480 ml 240 ml IV Total 800 ml Output Urine Total 950 ml 675 ml 1150 ml 750 ml # Bowel Movements 1 0 1 Result Diagram: 09/09/16 0533 09/10/16 0510 Imaging Last Impressions Abdomen/Pelvis CT 09/03/16 1217 Signed Impressions: Service Date/Time: Saturday, September 03, 2016 14:07 - CONCLUSION: 1. Fatty liver. 2. Chronic spondylolysis bilateral L5. Crystal Vazquez MD Head CT 09/03/16 0000 Signed Impressions: Service Date/Time: Saturday, September 03, 2016 18:31 - CONCLUSION: Unremarkable study. Crystal Vazquez MD Objective Remarks General: No acute distress. Mildly tremulous. However minimal hand tremors noted. Neck: trachea midline Heart: Regular rate and rhythm. 1/6 murmur. Lungs: Clear to auscultation bilaterally. No wheezes. Breathing is nonlabored. Abdomen: Soft, some discomfort with deep palpation in the epigastric region, nondistended. Extremities: No lower extremity edema. Weakness of both legs noted, 3/5 in the lower extremities and with flexion and extension of feet at the ankles Psych: Alert, oriented. Procedures None A/P Problem List: (1) Pancreatitis ICD Code: K85.90 Status: Acute (2) Hypomagnesemia ICD Code: E83.42 Status: Acute (3) Hypokalemia ICD Code: E87.6 Status: Acute (4) Hyperlipidemia ICD Code: E78.5 Status: Acute (5) GERD (gastroesophageal reflux disease) ICD Code: K21.9 Status: Acute (6) Alcohol withdrawal ICD Code: F10.239 Status: Acute (7) Alcohol dependence ICD Code: F10.20 Status: Acute (8) Alcohol abuse ICD Code: F10.10 Status: Acute (9) Diplopia ICD Code: H53.2 Status: Acute (10) Heart murmur ICD Code: R01.1 Status: Acute Assessment and Plan 1. Alcohol withdrawal: Continue CIWA protocol. Seizure, alcohol withdrawal precautions. Multivitamin, thiamine, folic acid. Apparently had developed hallucinations but doesn't mention any today. Continue to taper Librium. Improving. 2. Hypokalemia: Continue potassium supplementation in IV fluids. Improved. 3. Hypomagnesemia: Improved. 4. Diplopia: Patient has had multiple recent falls and has reportedly hit his head. Head CT is negative. Appreciate ophthalmology recommendations who recommends covering one eye for symptomatic relief while in the hospital and doing a more thorough exam as an outpatient and measuring him for prisms for his glasses 5. DVT prophylaxis: SCDs, PORSHA smith. 6. Heart murmur: 2D echo shows an EF of 35-40% with mild tricuspid regurgitation. Caution with IV fluids. 7. Pancreatitis: I will decrease his IV fluids to 75 ML's per hour for an additional total of 500mls due to low EF. Monitor closely for any signs of pulmonary edema. Repeat lipase in the morning. Advance diet and monitor for worsening symptoms. 8. ?PTSD: Appreciate psychiatry recommendations. 9. Lower extremity weakness: Continue PT. Patient's weakness seems to be worsening. MRI of L-spine has been ordered and not yet done. neurology following, appreciate assistance and final recs. B12 elevated, sed rate elevated at 32. Discharge Planning Patient may need SNF/rehab at discharge vs home health care. Discharge pending further workup of lower extremity weakness and recs from neuro. Problem Qualifiers (1) Pancreatitis: Qualified Code: K85.20 - Alcohol-induced acute pancreatitis without infection or necrosis (2) Alcohol dependence: Qualified Code: F10.231 - Alcohol dependence with withdrawal delirium Saritha Kat MD Sep 10, 2016 08:24
[2016-09-10] MEDS: REMOVE OLD PATCH T-DERMAL SCH (09:00)
[2016-09-10] MEDS ORDERED: KCL IV ONE (09:00)
[2016-09-10] MEDS ORDERED: NS IV ONE (09:00)
[2016-09-10] MEDS: PANTOPRAZOLE SOD 40 MG DELAYED RELEASE TAB PO SCH (09:05)
[2016-09-10] MEDS: chlordiazePOXIDE 25 MG CAP PO SCH ×2 (09:05→19:03)
[2016-09-10] MEDS: THIAMINE HCL 100 MG TAB PO SCH (09:05)
[2016-09-10] MEDS: DOCUSATE SODIUM 50 MG/SENNA 8.6 MG TAB PO SCH ×2 (09:05→19:03)
[2016-09-10] MEDS: NICOTINE 21 MG/24 HR PATCH T-DERMAL SCH (09:06)
--- NOTE | 2016-09-10 12:17 | RADRPT ---
EXAM DATE/TIME: 09/10/2016 11:18 [facility] COMPARISON: CT BRAIN W/O CONTRAST, September 03, 2016, 18:31. INDICATIONS : Lower extremity weakness. MEDICAL HISTORY : None. SURGICAL HISTORY : None. ENCOUNTER: Initial ACUITY: 1 day PAIN SCORE: 0/10 LOCATION: cranial TECHNIQUE: Multiplanar, multisequence MRI of the brain was performed without contrast. FINDINGS: There is no evidence for intracranial hemorrhage, mass effect, mass lesions, edema, or extra-axial fl uid collections. The ventricles are normal size for the patient's age. There are no signs of acute infarction for technique. The diffusion portion is unremarkable. There is mucous retention cyst in t he left maxillary sinus. CONCLUSION: Unremarkable study. Crystal Vazquez MD on September 10, 2016 at 12:09 Board Certified Radiologist. This report was verified electronically.
--- NOTE | 2016-09-10 12:27 | RADRPT ---
EXAM DATE/TIME: 09/10/2016 11:18 [facility] COMPARISON: CT ABDOMEN & PELVIS W CONTRAST, September 03, 2016, 14:07. INDICATIONS : Lower extremity weakness. MEDICAL HISTORY : None. SURGICAL HISTORY : None. ENCOUNTER: Initial ACUITY: 1 day PAIN SCORE: 0/10 LOCATION: Paraspinal TECHNIQUE: Multiplanar multisequence MRI of the lumbar spine was performed without contrast. FINDINGS: The marrow signal appears intact. No compression deformities are seen. L1-L2: No appreciable compromise to the thecal sac, or the exiting nerve roots is seen. The neural foramina and lateral recesses are patent bilaterally. L2-L3: No appreciable compromise to the thecal sac, or the exiting nerve roots is seen. The neural foramina and lateral recesses are patent bilaterally. L3-L4: No appreciable compromise to the thecal sac, or the exiting nerve roots is seen. The neural foramina and lateral recesses are patent bilaterally. L4-L5: No appreciable compromise to the thecal sac, or the exiting nerve roots is seen. The neural foramina and lateral recesses are patent bilaterally. L5-S1: There is chronic spondylolysis bilaterally at this level at L5 with approximate 6 mm anterolis thesis. Slight bulging disc and hypertrophic changes are seen with indentation on the thecal sac and no significant compromise to the thecal sac or the exiting nerve roots. CONCLUSION: Chronic bilateral spondylolysis L5 and Grade I anterolisthesis without any significan t compromise to the thecal sac or the exiting nerve roots. Crystal Vazquez MD on September 10, 2016 at 12:22 Board Certified Radiologist. This report was verified electronically.
[2016-09-10] MEDS: SODIUM CHLORIDE 0.9% FLUSH 10 ML FLUSH IV FLUSH PRN (19:03)
[2016-09-11] VITALS (8 sets, daily range): BP systolic 90–115; BP diastolic 56–75; PULSE 99–116; RESP 16–20; TEMP 96–98; O2SAT 97–100
[2016-09-11] MEDS: LORazepam 1 MG TAB PO PRN (01:26)
--- NOTE | 2016-09-11 08:36 | HHI.PR ---
Subjective Remarks No acute events overnight. Tachycardic to 116. Patient continues to complain of pain in his right side and on the bottoms of his feet. Has not been out of bed. Denies any hallucinations, positive tremors. Objective Vitals Vital Signs Date Time Temp Pulse Resp B/P Pulse Ox O2 Delivery O2 Flow Rate FiO2 09/11/16 04:00 96.0 101 17 99/59 99 09/11/16 01:11 97.0 116 18 115/75 99 09/11/16 00:00 96.1 99 16 101/61 100 09/10/16 21:16 96 09/10/16 20:00 96.7 105 17 106/65 99 09/10/16 16:00 98.0 95 14 101/62 100 09/10/16 12:00 97.9 90 12 101/66 100 I/O 09/10/16 09/10/16 09/10/16 09/11/16 09/11/16 09/11/16 06:59 14:59 22:59 06:59 14:59 22:59 Intake Total 240 ml 420 ml 1742 ml 480 ml Output Total 750 ml 200 ml 400 ml 1200 ml Balance -510 ml 220 ml 1342 ml -720 ml Intake Oral 240 ml 420 ml 480 ml 480 ml IV Total 1262 ml Output Urine Total 750 ml 200 ml 400 ml 1200 ml # Voids 1 # Bowel Movements 1 0 1 Result Diagram: 09/09/16 0533 09/10/16 0510 Objective Remarks General: No acute distress. Tremulous. Neck: trachea midline Heart: Regular rate and rhythm. 1/6 murmur. Lungs: Clear to auscultation bilaterally. No wheezes. Breathing is nonlabored. Abdomen: Soft, some discomfort with deep palpation in the epigastric region, nondistended. Extremities: No lower extremity edema. Weakness of both legs noted, 3/5 in the lower extremities and with flexion and extension of feet at the ankles Psych: Alert, oriented. Procedures None A/P Problem List: (1) Pancreatitis ICD Code: K85.90 Status: Acute (2) Hypomagnesemia ICD Code: E83.42 Status: Acute (3) Hypokalemia ICD Code: E87.6 Status: Acute (4) Hyperlipidemia ICD Code: E78.5 Status: Acute (5) GERD (gastroesophageal reflux disease) ICD Code: K21.9 Status: Acute (6) Alcohol withdrawal ICD Code: F10.239 Status: Acute (7) Alcohol dependence ICD Code: F10.20 Status: Acute (8) Alcohol abuse ICD Code: F10.10 Status: Acute (9) Diplopia ICD Code: H53.2 Status: Acute (10) Heart murmur ICD Code: R01.1 Status: Acute Assessment and Plan 1. Alcohol withdrawal: Continue CIWA protocol. Seizure, alcohol withdrawal precautions. Multivitamin, thiamine, folic acid. Continue to taper Librium. Improving. 2. Hypokalemia: Resolved 3. Hypomagnesemia: Improved. 4. Diplopia: Patient has had multiple recent falls and has reportedly hit his head. Head CT is negative. Appreciate ophthalmology recommendations who recommends covering one eye for symptomatic relief while in the hospital and doing a more thorough exam as an outpatient and measuring him for prisms for his glasses 5. DVT prophylaxis: SCDs, PORSHA hose. 6. Heart murmur: 2D echo shows an EF of 35-40% with mild tricuspid regurgitation. Caution with IV fluids. 7. Pancreatitis: Patient received additional 500cc of IVFs yesterday without improvement of lipase or abdominal pain. Denies N/V. Change to low fat diet. Repeat Lipase in am. Caution with IVFs given patient's low EF. 8. ?PTSD: Appreciate psychiatry recommendations. 9. Lower extremity weakness: Continue PT. Patient's weakness seems to be worsening. MRI of L-spine with no acute process, no compromise to thecal sac or nerve roots. Neurology following, appreciate assistance and final recs. B12 elevated, sed rate elevated at 32. Patient will need PT on discharge and likely will require SNF/Rehab as he has been unable to stand. Discharge Planning Patient may need SNF/rehab at discharge vs home health care. Discharge pending further workup of lower extremity weakness and recs from neuro. Problem Qualifiers (1) Pancreatitis: Qualified Code: K85.20 - Alcohol-induced acute pancreatitis without infection or necrosis (2) Alcohol dependence: Qualified Code: F10.231 - Alcohol dependence with withdrawal delirium Maylin Dey MD R3 Sep 11, 2016 08:36
[2016-09-11] MEDS: REMOVE OLD PATCH T-DERMAL SCH (09:00)
[2016-09-11] MEDS: NICOTINE 21 MG/24 HR PATCH T-DERMAL SCH (09:23)
[2016-09-11] MEDS: SODIUM CHLORIDE 0.9% FLUSH 10 ML FLUSH IV FLUSH PRN (09:24)
[2016-09-11] MEDS: DOCUSATE SODIUM 50 MG/SENNA 8.6 MG TAB PO SCH ×2 (09:24→22:51)
[2016-09-11] MEDS: chlordiazePOXIDE 25 MG CAP PO SCH ×2 (09:24→22:49)
[2016-09-11] MEDS: THIAMINE HCL 100 MG TAB PO SCH (09:24)
[2016-09-11] MEDS: PANTOPRAZOLE SOD 40 MG DELAYED RELEASE TAB PO SCH (09:24)
[2016-09-12] VITALS (13 sets, daily range): BP systolic 100–117; BP diastolic 56–68; PULSE 70–129; RESP 16–18; TEMP 96.5–98.7; O2SAT 97–100
[2016-09-12 08:17] LABS: BICARBONATE 26.8 MEQ/L (21.0-32.0); MAGNESIUM 1.9 MG/DL (1.5-2.5); POTASSIUM 3.6 MEQ/L (3.5-5.1)
[2016-09-12] MEDS: PANTOPRAZOLE SOD 40 MG DELAYED RELEASE TAB PO SCH (09:54)
[2016-09-12] MEDS: REMOVE OLD PATCH T-DERMAL SCH (09:54)
[2016-09-12] MEDS: DOCUSATE SODIUM 50 MG/SENNA 8.6 MG TAB PO SCH ×2 (09:54→21:27)
[2016-09-12] MEDS: THIAMINE HCL 100 MG TAB PO SCH (09:54)
[2016-09-12] MEDS: chlordiazePOXIDE 25 MG CAP PO SCH ×2 (09:54→21:27)
[2016-09-12] MEDS: NICOTINE 21 MG/24 HR PATCH T-DERMAL SCH (09:54)
--- NOTE | 2016-09-12 11:16 | HHI.PYPN ---
Subjective Remarks Patient was seen today for psychiatric reevaluation, she was found calm, cooperative and pleasant. Patient reports that he feels much better now, he reports good mood, good level of energy, good appetite and good concentration, patient says that he feels motivated to stop alcohol and going to a rehabilitation program. He denies suicidal and homicidal ideation, he denies visual and auditory hallucinations. He does report problems sleeping at night, recurrent nightmares about past events overseas, also night sweating and anxiety. Patient is fully oriented 3, no delirium or withdrawal symptoms observed or reported. Objective Alert: Yes [place]: Person, Place, Date, Situation Mood: Calm Affect: Appropriate Memory Intact: Immediate, Recent, Remote Hallucinations: Other (no hallucinations) Delusions: No Delusion Type: Other (not elicited) Suicidal: Ideation (no SI) Homicidal: Ideation (no HI) Insight/Judgment Good Labs Test 09/12/16 06:29 Sodium Level 137 MEQ/L Potassium Level 3.6 MEQ/L Chloride Level 102 MEQ/L Carbon Dioxide Level 26.8 MEQ/L Anion Gap 8 MEQ/L Blood Urea Nitrogen 9 MG/DL Creatinine 0.69 MG/DL Estimat Glomerular Filtration 123 ML/MIN Rate Random Glucose 112 MG/DL Calcium Level 9.1 MG/DL Magnesium Level 1.9 MG/DL Lipase 699 U/L Vitals/IOs Vital Signs Date Time Temp Pulse Resp B/P Pulse Ox O2 Delivery O2 Flow Rate FiO2 09/12/16 08:09 114 09/12/16 08:00 98.7 16 100/60 100 Intake and Output 09/11/16 09/11/16 09/11/16 07:59 15:59 23:59 Intake Total 480 ml 480 ml Output Total 1200 ml 600 ml Balance -720 ml -120 ml Assessment & Plan Problem List: (1) Alcohol dependence Assessment & Plan: Continue CIWA protocol and Librium taper down. ICD Code: F10.20 (2) Chronic post-traumatic stress disorder (PTSD) Assessment & Plan: Or psychotic evaluation today the patient denies acute depressive symptoms, he denies suicidal and homicidal ideation, visual and auditory hallucinations. Patient is oriented 3, no delirium observe. He does report recurrent nightmares of overseas events in the past. He also reports some hypervigilance and anxiety. Patient is motivated to stop alcohol and going to a rehabilitation program. He will benefit of trazodone 100 mg at bedtime to help with sleep and PTSD symptoms, also Prazosin 1 mg at bedtime to help with nightmares. Patient was educated about calling the [place] [facility] live out patient treatment.. ICD Code: F43.12 Assessment & Plan Estimated LOS: days Justification for Cont. Inpt. He does not meet criteria for psychiatric admission. Problem Qualifiers (1) Alcohol dependence: Qualified Code: F10.231 - Alcohol dependence with withdrawal delirium Jasbir Doyle MD Sep 12, 2016 11:16
--- NOTE | 2016-09-12 12:00 | HHI.PR ---
Subjective Remarks Follow-up alcohol abuse/pancreatitis/Wernicke encephalopathy 09/12/16-patient seen and examined, had one episode for last night without any head trauma. Alert and oriented 3. Case Discussed with psychiatry. Case also discussed with rn case manager hospice as well as [facility] nurse liaison Objective Vitals Vital Signs Date Time Temp Pulse Resp B/P Pulse Ox O2 Delivery O2 Flow Rate FiO2 09/12/16 08:09 114 09/12/16 08:00 98.7 115 16 100/60 100 09/12/16 04:03 113 09/12/16 04:00 97.3 111 16 117/68 100 09/12/16 03:09 129 09/12/16 00:03 104 09/12/16 00:00 96.5 110 16 106/59 100 09/11/16 20:10 104 09/11/16 20:00 96.5 112 16 99/60 98 09/11/16 16:00 96.5 106 18 96/56 100 09/11/16 12:24 98.0 112 20 90/60 97 I/O 09/11/16 09/11/16 09/11/16 09/12/16 09/12/16 09/12/16 06:59 14:59 22:59 06:59 14:59 22:59 Intake Total 480 ml 480 ml 480 ml Output Total 1200 ml 600 ml 500 ml Balance -720 ml -120 ml -20 ml Intake Oral 480 ml 480 ml 480 ml Output Urine Total 1200 ml 600 ml 500 ml # Bowel Movements 1 Result Diagram: 09/09/16 0533 09/12/16 0629 Imaging Last Impressions Lumbar Spine MRI 09/10/16 0000 Signed Impressions: Service Date/Time: Saturday, September 10, 2016 11:18 - CONCLUSION: Chronic bilateral spondylolysis L5 and Grade I anterolisthesis without any significant compromise to the thecal sac or the exiting nerve roots. Crystal Vazquez MD Brain MRI 09/10/16 0000 Signed Impressions: Service Date/Time: Saturday, September 10, 2016 11:18 - CONCLUSION: Unremarkable study. Crystal Vazquez MD Abdomen/Pelvis CT 09/03/16 1217 Signed Impressions: Service Date/Time: Saturday, September 03, 2016 14:07 - CONCLUSION: 1. Fatty liver. 2. Chronic spondylolysis bilateral L5. Crystal Vazquez MD Head CT 09/03/16 0000 Signed Impressions: Service Date/Time: Saturday, September 03, 2016 18:31 - CONCLUSION: Unremarkable study. Crystal Vazquez MD Objective Remarks GENERAL: NAD SKIN: Warm and dry. HEAD: Normocephalic. EYES: No scleral icterus. No injection or drainage. NECK: Supple, trachea midline. No JVD or lymphadenopathy. CARDIOVASCULAR: Regular rate and rhythm with II/ JESUS RESPIRATORY: Breath sounds equal bilaterally. No accessory muscle use. GASTROINTESTINAL: Abdomen soft, non-tender, nondistended. MUSCULOSKELETAL: No cyanosis, or edema. BACK: Nontender without obvious deformity. No CVA tenderness. Procedures None A/P Problem List: (1) Pancreatitis ICD Code: K85.90 Status: Acute (2) Hypomagnesemia ICD Code: E83.42 Status: Acute (3) Hypokalemia ICD Code: E87.6 Status: Acute (4) Hyperlipidemia ICD Code: E78.5 Status: Acute (5) GERD (gastroesophageal reflux disease) ICD Code: K21.9 Status: Acute (6) Alcohol withdrawal ICD Code: F10.239 Status: Acute (7) Alcohol dependence ICD Code: F10.20 Status: Acute (8) Alcohol abuse ICD Code: F10.10 Status: Acute (9) Diplopia ICD Code: H53.2 Status: Acute (10) Heart murmur ICD Code: R01.1 Status: Acute Assessment and Plan 46-year-old man with 1. Alcohol withdrawal: Continue CIWA protocol. Seizure, alcohol withdrawal precautions. Multivitamin, thiamine, folic acid. Continue to taper Librium. Improving. 2. Hypokalemia: Resolved 3. Hypomagnesemia: Improved. 4. Wernicke encephalopathy /Diplopia: Resolved. Appreciate input from neurology. Outpatient follow-up 5. DVT prophylaxis: SCDs, PORSHA smith. 6. Heart murmur: 2D echo shows an EF of 35-40% with mild tricuspid regurgitation. Caution with IV fluids. 7. Pancreatitis: Lipase trending down 8. ?PTSD: Appreciate psychiatry recommendations. Appreciate input from psychiatry however patient does not meet inpatient admission at this time. Case discussed with Dr. Good. 9. Lower extremity weakness: Continue PT. case discussed with Sadie nurse liaison for [facility] for evaluation for possible admission to [facility]. OT consult Problem Qualifiers (1) Pancreatitis: Qualified Code: K85.20 - Alcohol-induced acute pancreatitis without infection or necrosis (2) Alcohol dependence: Qualified Code: F10.231 - Alcohol dependence with withdrawal delirium Ted Vang MD Sep 12, 2016 11:59
[2016-09-12] MEDS ORDERED: LORA-474 PO (15:04)
[2016-09-12] MEDS ORDERED: GNP100TA3 PO (15:06)
[2016-09-12] MEDS ORDERED: PRAZ1 PO (15:06)
[2016-09-12] MEDS ORDERED: TRAZ50TA12 PO (15:06)
[2016-09-12] MEDS ORDERED: PANT40TA3 PO (15:06)
[2016-09-12] MEDS ORDERED: PRAZOSIN HCL 1 MG CAP PO SCH (21:00)
[2016-09-12] MEDS ORDERED: traZODone HCL 100 MG TAB PO SCH (21:00)
[2016-09-12] MEDS: SODIUM CHLORIDE 0.9% FLUSH 10 ML FLUSH IV FLUSH PRN (21:28)
[2016-09-13] VITALS (7 sets, daily range): BP systolic 94–112; BP diastolic 56–73; PULSE 102–112; RESP 16–18; TEMP 96.4–98.7; O2SAT 97–100
[2016-09-13] MEDS: REMOVE OLD PATCH T-DERMAL SCH (07:56)
[2016-09-13] MEDS: NICOTINE 21 MG/24 HR PATCH T-DERMAL SCH (07:56)
[2016-09-13] MEDS: PANTOPRAZOLE SOD 40 MG DELAYED RELEASE TAB PO SCH (07:57)
[2016-09-13] MEDS: THIAMINE HCL 100 MG TAB PO SCH (07:57)
[2016-09-13] MEDS: DOCUSATE SODIUM 50 MG/SENNA 8.6 MG TAB PO SCH (07:57)
[2016-09-13] MEDS: chlordiazePOXIDE 25 MG CAP PO SCH (08:01)
--- NOTE | 2016-09-13 11:10 | HHI.PR ---
Subjective Remarks Follow-up alcohol abuse/pancreatitis/Wernicke encephalopathy 09/12/16-patient seen and examined, had one episode for last night without any head trauma. Alert and oriented 3. Case Discussed with psychiatry. Case also discussed with director of casework services as well as [facility] nurse liaison 09/13/16-patient seen and examined, no acute event overnight and stable. Objective Vitals Vital Signs Date Time Temp Pulse Resp B/P Pulse Ox O2 Delivery O2 Flow Rate FiO2 09/13/16 08:32 96.4 110 18 112/73 98 09/13/16 08:00 102 09/13/16 04:10 108 09/13/16 04:00 98.7 112 16 94/56 97 09/13/16 00:00 97.3 103 16 96/60 100 09/13/16 00:00 102 09/12/16 20:17 101 09/12/16 20:00 98.0 103 16 108/64 98 09/12/16 16:09 110 09/12/16 16:00 97.9 74 18 102/60 97 09/12/16 13:00 98.4 70 16 100/56 98 09/12/16 12:04 128 I/O 09/12/16 09/12/16 09/12/16 09/13/16 09/13/16 09/13/16 07:00 15:00 23:00 07:00 15:00 23:00 Intake Total 480 ml 960 ml Output Total 500 ml 600 ml 125 ml 475 ml Balance -20 ml 360 ml -125 ml -475 ml Intake Oral 480 ml 960 ml Output Urine Total 500 ml 600 ml 125 ml 475 ml # Bowel Movements 1 Result Diagram: 09/09/16 0533 09/12/16 0629 Imaging Last Impressions Lumbar Spine MRI 09/10/16 0000 Signed Impressions: Service Date/Time: Saturday, September 10, 2016 11:18 - CONCLUSION: Chronic bilateral spondylolysis L5 and Grade I anterolisthesis without any significant compromise to the thecal sac or the exiting nerve roots. Crystal Vazquez MD Brain MRI 09/10/16 0000 Signed Impressions: Service Date/Time: Saturday, September 10, 2016 11:18 - CONCLUSION: Unremarkable study. Crystal Vazquez MD Abdomen/Pelvis CT 09/03/16 1217 Signed Impressions: Service Date/Time: Saturday, September 03, 2016 14:07 - CONCLUSION: 1. Fatty liver. 2. Chronic spondylolysis bilateral L5. Crystal Vazquez MD Head CT 09/03/16 0000 Signed Impressions: Service Date/Time: Saturday, September 03, 2016 18:31 - CONCLUSION: Unremarkable study. Crystal Vazquez MD Objective Remarks GENERAL: NAD SKIN: Warm and dry. HEAD: Normocephalic. EYES: No scleral icterus. No injection or drainage. NECK: Supple, trachea midline. No JVD or lymphadenopathy. CARDIOVASCULAR: Regular rate and rhythm with II/ JESUS RESPIRATORY: Breath sounds equal bilaterally. No accessory muscle use. GASTROINTESTINAL: Abdomen soft, non-tender, nondistended. MUSCULOSKELETAL: No cyanosis, or edema. BACK: Nontender without obvious deformity. No CVA tenderness. Procedures None A/P Problem List: (1) Pancreatitis ICD Code: K85.90 Status: Acute (2) Hypomagnesemia ICD Code: E83.42 Status: Acute (3) Hypokalemia ICD Code: E87.6 Status: Acute (4) Hyperlipidemia ICD Code: E78.5 Status: Acute (5) GERD (gastroesophageal reflux disease) ICD Code: K21.9 Status: Acute (6) Alcohol withdrawal ICD Code: F10.239 Status: Acute (7) Alcohol dependence ICD Code: F10.20 Status: Acute (8) Alcohol abuse ICD Code: F10.10 Status: Acute (9) Diplopia ICD Code: H53.2 Status: Acute (10) Heart murmur ICD Code: R01.1 Status: Acute Assessment and Plan 46-year-old man with 1. Alcohol withdrawal: Continue CIWA protocol. Seizure, alcohol withdrawal precautions. Multivitamin, thiamine, folic acid. Continue to taper Librium. Improving. 2. Hypokalemia: Resolved 3. Hypomagnesemia: Improved. 4. Wernicke encephalopathy /Diplopia: Resolved. Appreciate input from neurology. Outpatient follow-up 5. DVT prophylaxis: SCDsPORSHA. 6. Heart murmur: 2D echo shows an EF of 35-40% with mild tricuspid regurgitation. Caution with IV fluids. 7. Pancreatitis: Lipase trending down 8. ?PTSD: Appreciate psychiatry recommendations. Appreciate input from psychiatry however patient does not meet inpatient admission at this time. Case discussed with Dr. Good 09/12/16. 9. Lower extremity weakness: Continue PT/OT. Awaiting for final decision for possible admission to CIR vs SNF Problem Qualifiers (1) Pancreatitis: Qualified Code: K85.20 - Alcohol-induced acute pancreatitis without infection or necrosis (2) Alcohol dependence: Qualified Code: F10.231 - Alcohol dependence with withdrawal delirium Ted Vang MD Sep 13, 2016 11:10
--- NOTE | 2016-09-13 17:08 | HHI.DS ---
Discharge Summary Admission Date Sep 03, 2016 at 15:29 Discharge Date: Sep 13, 2016 Admitting Diagnosis pancreatitis, hypokalemia, hypomagnesemia, tachycardia (1) Pancreatitis ICD Code: K85.90 (2) Hypomagnesemia ICD Code: E83.42 (3) Hypokalemia ICD Code: E87.6 (4) Hyperlipidemia ICD Code: E78.5 (5) GERD (gastroesophageal reflux disease) ICD Code: K21.9 (6) Alcohol withdrawal ICD Code: F10.239 (7) Alcohol dependence ICD Code: F10.20 (8) Alcohol abuse ICD Code: F10.10 (9) Diplopia ICD Code: H53.2 (10) Heart murmur ICD Code: R01.1 Procedures None Brief History - From Admission The patient is a 46-year-old male who presented to the emergency department with complaint of abdominal pain, nausea, vomiting. This started a few days ago , and he has not really been able to keep much down today. He reports that he is a "serious alcoholic". He wants to stop drinking. His last drink was at 2:30 this morning. He states that he drinks a half gallon of vodka daily. The patient 's abdominal pain is located just below the sternum. He feels very weak. He denies vomiting any blood. He has had an alcohol withdrawal seizure, 10 years ago. He states that about 4 days ago he developed double vision, and it has not improved. He still states that he has fallen multiple times recently. He has hit his head on many of those occasions. He did not fall today. CBC/BMP: 09/09/16 0533 09/12/16 0629 Significant Findings Laboratory Tests Test 09/11/16 09/12/16 04:33 06:29 Lipase 657 U/L 699 U/L (73-393) (73-393) Random Glucose 112 MG/DL (74-106) Imaging Last Impressions Lumbar Spine MRI 09/10/16 0000 Signed Impressions: Service Date/Time: Saturday, September 10, 2016 11:18 - CONCLUSION: Chronic bilateral spondylolysis L5 and Grade I anterolisthesis without any significant compromise to the thecal sac or the exiting nerve roots. Crystal Vazquez MD Brain MRI 09/10/16 0000 Signed Impressions: Service Date/Time: Saturday, September 10, 2016 11:18 - CONCLUSION: Unremarkable study. Crystal Vazquez MD Abdomen/Pelvis CT 09/03/16 1217 Signed Impressions: Service Date/Time: Saturday, September 03, 2016 14:07 - CONCLUSION: 1. Fatty liver. 2. Chronic spondylolysis bilateral L5. Crystal Vazquez MD Head CT 09/03/16 0000 Signed Impressions: Service Date/Time: Saturday, September 03, 2016 18:31 - CONCLUSION: Unremarkable study. Crystal Vazquez MD PE at Discharge GENERAL: NAD SKIN: Warm and dry. HEAD: Normocephalic. EYES: No scleral icterus. No injection or drainage. NECK: Supple, trachea midline. No JVD or lymphadenopathy. CARDIOVASCULAR: Regular rate and rhythm with II/ JESUS RESPIRATORY: Breath sounds equal bilaterally. No accessory muscle use. GASTROINTESTINAL: Abdomen soft, non-tender, nondistended. MUSCULOSKELETAL: No cyanosis, or edema. BACK: Nontender without obvious deformity. No CVA tenderness. Hospital Course Patient admitted secondary to pancreatitis and alcohol abuse for which he was treated conservatively with rally pack, CIWA protocol as well as aggressive fluid resuscitation with monitoring of lipase. Secondary to cranial nerve IV palsy ophthalmology was consulted and conservative management was recommended. Neurology was also consulted due to bilateral lower extremity weakness. Due to his history of depression and questionable PTSD psychiatry was consulted. Physical therapy was consulted. DVT and GI prophylaxis were provided. All electrolyte abnormalities were corrected accordingly. Discharge Disposition: Rehab Inpatient Discharge Time: > 30 minutes Discharge Instructions DIET: Follow Instructions for: Heart Healthy Diet Activities you can perform: Regular-No Restrictions Follow up Referrals: PCP Follow-up - 2-3 Days New Medications: Lorazepam (Ativan) 1 Mg Tab 1 MG PO Q4H PRN for severe anxiety or dyspnea #10 Ref 0 TAB Pantoprazole (Pantoprazole) 40 Mg Tab 40 MG PO DAILY Prevent Stress Ulcers #30 TAB Prazosin (Minipress) 1 Mg Cap 1 MG PO HS Blood Pressure Management #30 CAP Thiamine HCl (Gnp Vitamin B-1) 100 Mg Tab 100 MG PO DAILY Alcohol Detox #30 TAB Trazodone (Trazodone) 50 Mg Tab 100 MG PO HS Immunosuppression #30 TAB Ted Vang MD Sep 13, 2016 17:08 Ted Vang MD Sep 13, 2016 17:08
== END 2016-09-13 17:37 | DRG 439 ==
LOC: NEPC 11:14 → NEDA 15:29 → HIMN 19:50 → HOCA 09-07 16:29
PROVIDERS: ADMIT Hospitalist; ATTEND Hospitalist
DX: K85.20 Alcohol induced acute pancreatitis without necrosis or infection (principal); F10.231 Alcohol dependence with withdrawal delirium; G82.20 Paraplegia, unspecified; H49.10 Fourth [trochlear] nerve palsy, unspecified eye; E83.42 Hypomagnesemia; I07.1 Rheumatic tricuspid insufficiency; E51.2 Wernicke's encephalopathy; E87.6 Hypokalemia; E78.5 Hyperlipidemia, unspecified; F43.12 Post-traumatic stress disorder, chronic; H53.2 Diplopia; K21.9 Gastro-esophageal reflux disease without esophagitis; Z72.0 Tobacco use; Z91.81 History of falling; Y90.6 Blood alcohol level of 120-199 mg/100 ml
CPT/HCPCS: 70450; 70551; 72148; 74177; 76937; 80048; 80053; 80307; 81001; 82607; 83690; 83735; 85025; 85610; 85652; 85730; 87641; 93005; 93306; 96374; J2060; J2405; J3411; J3475; J3480; J7030; J7040; Q9967